=== PATIENT | female | born 1985 | race Hispanic/Latino ===

== ENCOUNTER 2018-11-29 08:04 | Emergency (ER) | payer BC ==
--- NOTE | 2018-11-29 09:44 | RAD REPORT ---
EXAM DESCRIPTION: RAD - Chest Pa And Lat (2 Views) - 11/29/2018 9:01 am CLINICAL HISTORY: cough COMPARISON: None. TECHNIQUE: PA and lateral views of the chest were obtained. FINDINGS: The lungs are clear. Heart size is normal and central vasculature is within normal limit s. No pleural effusion or pneumothorax seen. No acute bony finding noted. No aortic abnormality. Clothing artifacts overlie the chest. IMPRESSION: No acute cardiopulmonary process.
--- NOTE | 2018-11-29 10:12 | ER ---
Nurse's Notes [facility] Name: Soraida Gastelum Age: 33 yrs Sex: Female : 1985 Arrival Date: 11/29/2018 Time: 08:06 Bed 6 Private MD: Diagnosis: Cough Presentation: 11/29 08:15 Presenting complaint: Patient states: Intermittent cough x 1 month, sensation that ss there is a lump in throat when swallowing and now sharp pain when coughing in upper back which brought patient in today. Transition of care: patient was not received from another setting of care. Onset of symptoms was October 29, 2018. Risk Assessment: Do you want to hurt yourself or someone else? Patient reports no desire to harm self or others. Initial Sepsis Screen: Does the patient meet any 2 criteria? No. Patient's initial sepsis screen is negative. Does the patient have a suspected source of infection? No. Patient's initial sepsis screen is negative. Care prior to arrival: None. 08:15 Method Of Arrival: Ambulatory ss 08:15 Acuity: KEEGAN 4 ss Triage Assessment: 08:34 General: Appears in no apparent distress. uncomfortable, Behavior is calm, cooperative, hj appropriate for age. 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 - Social history:: Smoking status: Patient/guardian denies using tobacco. - Ebola Screening: : Patient denies exposure to infectious person Patient denies travel to an Ebola-affected area in the 21 days before illness onset. Screenin:15 Abuse screen: Denies threats or abuse. Denies injuries from another. Nutritional hj screening: No deficits noted. Tuberculosis screening: No symptoms or risk factors identified. Fall Risk None identified. Assessment: 08:15 Pain: Complains of pain in throat and chest. Respiratory: Airway is patent Respiratory hj effort is even, unlabored, Respiratory pattern is regular, symmetrical, Breath sounds are clear. EENT: 09:05 Reassessment: back from XRAY;. hj 10:35 EENT: Throat is clear. hj Vital Signs: 08:17 BP 123 / 64; Pulse 89; Resp 16; Temp 98.4(O); Pulse Ox 100% on R/A; Weight 63.5 kg; ss Height 4 ft. 11 in. (149.86 cm); Pain 0/10; 08:37 BP 117 / 71; Pulse 85; Resp 18; Pulse Ox 97% on R/A; hj 09:21 BP 120 / 68; Pulse 80; Resp 18; Pulse Ox 100% on R/A; hj 08:17 Body Mass Index 28.28 (63.50 kg, 149.86 cm) ED Course: 08:06 Patient arrived in ED. as 08:07 Elizabeth Elizabeth FNP-C is PHCP. kb 08:07 Regis Chung MD is Attending Physician. kb 08:16 Triage completed. ss 08:17 Arm band placed on right wrist. 08:32 Felipe Erickson, RN is Primary Nurse. hj 08:34 Patient has correct armband on for positive identification. Placed in gown. Bed in low hj position. Call light in reach. Side rails up X 1. 08:54 X-ray completed. Patient tolerated procedure well. Patient moved to radiology via wheelchair. Patient moved back from radiology. 09:00 Chest Pa And Lat (2 Views) In Process Unspecified. EDMS 10:34 No provider procedures requiring assistance completed. Patient did not have IV access hj during this emergency room visit. intact, bleeding controlled. Administered Medications: No medications were administered Outcome: 10:07 Discharge ordered by . kb 10:34 Discharged to home ambulatory. hj 10:34 Condition: stable 10:34 Discharge instructions given to patient, Instructed on discharge instructions, follow up and referral plans. Demonstrated understanding of instructions, follow-up care. 10:35 Patient left the ED. hj Signatures: Dispatcher [employer] EDMS Elizabeth Elizabeth FNP-C FNP-Ckb Martinez, Amelia as Smirch, Shelby, DORA RN Kay Vallecillo Felipe Erickson, RN RN hj
--- NOTE | 2018-11-29 10:13 | EDPHYS ---
Physician Documentation [facility] Name: Soraida Gastelum Age: 33 yrs Sex: Female : 1985 Arrival Date: 11/29/2018 Time: 08:06 Bed 6 Private MD: ED Physician Regis Chung HPI: 11/29 10:15 This 33 yrs old Female presents to ER via Ambulatory with complaints of Cough, kb Sore Throat, Back Pain. 10:15 The patient or guardian reports cough, that is intermittent, described as moderate, kb with no sputum. Onset: The symptoms/episode began/occurred 1 month(s) ago. Severity of symptoms: At their worst the symptoms were moderate, in the emergency department the symptoms are unchanged. Modifying factors: The symptoms are alleviated by nothing, the symptoms are aggravated by nothing. Associated signs and symptoms: Pertinent positives: sore throat. The patient has not experienced similar symptoms in the past. The patient has not recently seen a physician. Pt reports cough for over a month that is intermittent. States she has pain in her back and throat when she has the coughing fits. No pain or coughing at this time. 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 - Social history:: Smoking status: Patient/guardian denies using tobacco. - Ebola Screening: : Patient denies exposure to infectious person Patient denies travel to an Ebola-affected area in the 21 days before illness onset. ROS: 10:15 Constitutional: Negative for fever, chills, and weight loss, Cardiovascular: Negative kb for chest pain, palpitations, and edema, Abdomen/GI: Negative for abdominal pain, nausea, vomiting, diarrhea, and constipation, Back: Negative for injury and pain, : Negative for injury, bleeding, discharge, and swelling, MS/Extremity: Negative for injury and deformity, Skin: Negative for injury, rash, and discoloration, Neuro: Negative for headache, weakness, numbness, tingling, and seizure. 10:15 Respiratory: Positive for cough, Negative for dyspnea on exertion, hemoptysis, orthopnea, pleurisy, shortness of breath, sputum production, wheezing. Exam: 10:15 Constitutional: This is a well developed, well nourished patient who is awake, alert, kb and in no acute distress. Head/Face: Normocephalic, atraumatic. Eyes: Pupils equal round and reactive to light, extra-ocular motions intact. Lids and lashes normal. Conjunctiva and sclera are non-icteric and not injected. Cornea within normal limits. Periorbital areas with no swelling, redness, or edema. ENT: Nares patent. No nasal discharge, no septal abnormalities noted. Tympanic membranes are normal and external auditory canals are clear. Oropharynx with no redness, swelling, or masses, exudates, or evidence of obstruction, uvula midline. Mucous membranes moist. Neck: Trachea midline, no thyromegaly or masses palpated, and no cervical lymphadenopathy. Supple, full range of motion without nuchal rigidity, or vertebral point tenderness. No Meningismus. Chest/axilla: Normal chest wall appearance and motion. Nontender with no deformity. No lesions are appreciated. Cardiovascular: Regular rate and rhythm with a normal S1 and S2. No gallops, murmurs, or rubs. Normal PMI, no JVD. No pulse deficits. Respiratory: Lungs have equal breath sounds bilaterally, clear to auscultation and percussion. No rales, rhonchi or wheezes noted. No increased work of breathing, no retractions or nasal flaring. Abdomen/GI: Soft, non-tender, with normal bowel sounds. No distension or tympany. No guarding or rebound. No evidence of tenderness throughout. Back: No spinal tenderness. No costovertebral tenderness. Full range of motion. Skin: Warm, dry with normal turgor. Normal color with no rashes, no lesions, and no evidence of cellulitis. MS/ Extremity: Pulses equal, no cyanosis. Neurovascular intact. Full, normal range of motion. Neuro: Awake and alert, GCS 15, oriented to person, place, time, and situation. Cranial nerves II-XII grossly intact. Motor strength 5/5 in all extremities. Sensory grossly intact. Cerebellar exam normal. Normal gait. Vital Signs: 08:17 BP 123 / 64; Pulse 89; Resp 16; Temp 98.4(O); Pulse Ox 100% on R/A; Weight 63.5 kg; ss Height 4 ft. 11 in. (149.86 cm); Pain 0/10; 08:37 BP 117 / 71; Pulse 85; Resp 18; Pulse Ox 97% on R/A; hj 09:21 BP 120 / 68; Pulse 80; Resp 18; Pulse Ox 100% on R/A; hj 08:17 Body Mass Index 28.28 (63.50 kg, 149.86 cm) MDM: 08:08 Patient medically screened. [facility] 10:14 Data reviewed: vital signs, nurses notes. Data interpreted: Pulse oximetry: on room air kb is 100 %. Interpretation: normal. Counseling: I had a detailed discussion with the patient and/or guardian regarding: the historical points, exam findings, and any diagnostic results supporting the discharge/admit diagnosis, radiology results, the need for outpatient follow up, a family practitioner, to return to the emergency department if symptoms worsen or persist or if there are any questions or concerns that arise at home. 10:16 ED course: Pt does reports history of GERD, but doesn't take any medications. Educated kb to take a daily GERD medication OTC to see if that improves symptoms.. 11/29 08:43 Order name: Chest Pa And Lat (2 Views); Complete Time: 10:04 EDMS Administered Medications: No medications were administered Disposition: 11/30 07:31 Co-signature as Attending Physician, Regis Chung MD I agree with the assessment and [facility] plan of care. Chart complete. Disposition: 11/29/18 10:07 Discharged to Home. Impression: Cough. - Condition is Stable. - Discharge Instructions: Cough, Adult, Oikx-ie-Tewr. - Medication Reconciliation Form, Thank You Letter, Antibiotic Education, Prescription Opioid Use form. - Follow up: Private Physician; When: 2 - 3 days; Reason: Recheck today's complaints, Continuance of care, Re-evaluation by your physician. Follow up: Emergency Department; When: As needed; Reason: Worsening of condition. Signatures: Dispatcher [employer] EDMS Elizabeth Elizabeth FNP-C FNP-Ckb Anderson, Corey, MD MD cha Smirch, Shelby, RN RN Felipe Erickson RN RN hj Corrections: (The following items were deleted from the chart) 11/29 09:06 09:02 Chest Pa And Lat (2 Views)+[email or web address].[email or web address] ordered. EDMS EDMS 10:35 10:07 11/29/2018 10:07 Discharged to Home. Impression: Cough. Condition is Stable. hj Forms are Medication Reconciliation Form, Thank You Letter, Antibiotic Education, Prescription Opioid Use. Follow up: Private Physician; When: 2 - 3 days; Reason: Recheck today's complaints, Continuance of care, Re-evaluation by your physician. Follow up: Emergency Department; When: As needed; Reason: Worsening of condition. kb
[2018-11-29 11:01] VITALS: TEMP 98.4
[2018-11-29 11:02] VITALS: BP 120/68; O2SAT 100
== END 2018-11-29 10:35 | disposition home or self-care (01) ==
LOC: ER 08:04
DX: R05 Cough (principal); F41.9 Anxiety disorder, unspecified
CPT/HCPCS: 71046; 99283

== ENCOUNTER 2021-03-21 08:40 | Day surgery (SDC) | payer BC ==
[2021-03-21 08:50] LABS: Urine Appearance CLOUDY (Clear); Urine Bilirubin NEGATIVE (Negative); Urine Blood 3+ (Negative); Urine Color YELLOW (Yellow); Urine Glucose NEGATIVE (Negative); Urine Protein NEGATIVE (Negative); Urine Urobilinogen 0.2 mg/dL (0.2-1.0)
[2021-03-21 08:52] LABS: Urine Microscopic Reflex ORDER UMIC
[2021-03-21 08:58] LABS: Absolute Lymphocytes (CBC) 2.2 K/uL (0.7-4.9); Hematocrit 40.7 % (36.0-45.0); Lymphocytes % 24.5 % (15.3-44.8); MPV 9.9 fL (7.6-11.3); RBC Red Blood Cell Count 4.47 M/uL (3.86-4.86)
[2021-03-21] MEDS ORDERED: SCOPOLAMINE HYDROBROMIDE PATCH TD SCH (09:00)
[2021-03-21] MEDS ORDERED: Ringers Lactate 1,000 ML IV SCH (09:00)
[2021-03-21 09:02] LABS: Urine Bacteria 20-50 /HPF (<20)
[2021-03-21] MEDS ORDERED: Ringers Lactate 1,000 ML IV ONE (09:23)
[2021-03-21 09:35] LABS: Blood Morphology Comment NOT SEEN (NOT SEEN); Platelet Estimate ADEQ
[2021-03-21] MEDS ORDERED: SCOPOLAMINE HYDROBROMIDE PATCH TD ONE (11:18)
[2021-03-21] MEDS ORDERED: propofoL 200 MG/20 ML VIAL IV ONE (14:43)
[2021-03-21] MEDS ORDERED: dexAMETHasone 10 MG/ML VIAL ONE (14:43)
[2021-03-21] MEDS ORDERED: LIDOCAINE 1% MPF 5 ML VIAL ONE (14:44)
[2021-03-21] MEDS ORDERED: MIDAZOLAM HCL 2 MG/2 ML INJ ONE (14:44)
[2021-03-21] MEDS ORDERED: FENTANYL CITR 250 MCG/5 ML ONE (14:44)
[2021-03-21] MEDS ORDERED: VECURONIUM 10 MG/VIAL IV ONE (14:44)
[2021-03-21] MEDS ORDERED: LANO/MINERAL OIL/PETRO 3.5 GM ONE (14:44)
[2021-03-21] MEDS ORDERED: NS 0.9% VIAL 10 ML ONE (14:44)
[2021-03-21] MEDS ORDERED: ONDANSETRON 4 MG/2 ML VIAL ONE (14:44)
[2021-03-21] MEDS ORDERED: BUPIVACAINE 0.25% PF 10 ML VIAL ONE (15:11)
[2021-03-21] MEDS: BUPIVACAINE 0.25% PF 10 ML VIAL ONE ×2 (15:45→15:56)
[2021-03-21] MEDS ORDERED: KETOROLAC 30 MG/ML INJ ONE (16:03)
[2021-03-21] MEDS ORDERED: GLYCOPYRROLATE 0.2 MG/ML SYR ONE (16:08)
[2021-03-21] MEDS ORDERED: NEOSTIGMINE 1 MG/ML -5 ML ONE (16:10)
[2021-03-21] MEDS ORDERED: MEPERIDINE HCL 25 MG/ML SYR IM PRN (16:25)
[2021-03-21] MEDS ORDERED: IBUPROFEN 200 MG TAB PO PRN (16:25)
[2021-03-21] MEDS ORDERED: HYDROCODONE/APAP 5/325 MG TAB PO PRN (16:25)
[2021-03-21] MEDS ORDERED: PROMETHAZINE INJ 25 MG/ML AMP IV PRN (16:25)
[2021-03-21] MEDS ORDERED: ALBUTEROL INHALER 60 PUFF/8 GM IH ONE (16:31)
--- NOTE | 2021-03-21 16:35 | P.BOP ---
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
[2021-03-21] MEDS: HYDROMORPHONE HCL 1 MG/ML INJ ONE ×2 (16:50→16:55)
[2021-03-21 17:14] VITALS: BP 126/75; TEMP 98.2; O2SAT 99
[2021-03-21] MEDS ORDERED: HYDROCODONE/APAP 5/325 MG TAB ONE (17:20)
--- NOTE | 2021-03-21 17:30 | OP ---
Date of Procedure: 03/21/2021 Surgeon: Marlen Hendrickson MD Wood Bucker: Maryann Virgen. Preoperative Diagnoses: AUB-O/A, dysmenorrhea, left lower quadrant pain. Postoperative Diagnoses: AUB-O/A, dysmenorrhea, left lower quadrant pain and hydrosalpinges. Procedures Performed: Hysteroscopy, D and C, laparoscopy, bilateral salpingectomy. Anesthesia: General endotracheal. Estimated Blood Loss: Minimal. Specimens: Bilateral tubes. Complications: No complications. Drains: No drains. Condition: Stable. Urine Output: 200. Fluids: LR 600. Findings: Dilated tube. No endometriosis. Omental adhesions to the periumbilical area. Indications: The patient is a 35-year-old female, who presented with heavy bleeding and dysmenorrhea , complaining of left lower quadrant pain. Transvaginal ultrasound showed an unremarkable uterus and ovaries lining was only 7.4 mm. The patient is status post tubal ligation. No fertility plans any further. Her periods are usually 7 days long. 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 Denied dyspareunia, bladder or bowel symp toms. There was left lower quadrant tenderness very low to deep palpation on the abdominal exam. On pelvic exam, the left uterosacral appeared to be tender and retroflexed uterus with decreased mobili ty. Discussed about all the alternatives for treatment including oral contraceptive pills to treat for po ssible endometriosis. The right ovarian cyst 2.5 cm physiologic, did not really believe that this wo uld be the reason for her pain. Naproxen was given for her dysmenorrhea. We observed the patient wi th this and over time did not have adequate relief. No evidence of any PID. So, discussed about the surgical treatment and options and evaluation. The patient was found stress urinary incontinence an d some prolapse both noted. However, the patient wanted to proceed with taking care of her bleeding and pain at this time first. So, I went ahead and discussed the alternatives of Depot progesterone, not a great candidate for IUD. So, I wanted to go for a diagnostic test as well as possible therapeu tic treatment if endometriosis was found, so she was consented and brought to the OR. Prior to the surgery, she also was evaluated for her mixed incontinence, although the patient was com plaining mostly of stress incontinence. On urodynamic evaluation, it was very clear that her overact horacio bladder was much severe with the low bladder capacity and her maximal urethral closure pressure w as very high at 120. Did not demonstrate a leak on Valsalva during the test. So, she was started on overactive bladder pathway, then brought here for the pain and bleeding evaluation. After informed consent was verified, she was taken back to OR, placed in supine fashion on the operat ing table. General anesthesia was given. Placed in a dorsal lithotomy position after she was preppe d and draped. White was placed to drain the bladder. Speculum placed to expose the cervix. Anterio r lip was grasped with 2 Allis clamps and diagnostic SlimLine hysteroscope was used for hysteroscopy. D and C was performed after the scope was pulled out. The cavity was undistorted. No intracavitar y lesions. The endometrium unremarkable. A diagnostic uterine manipulator was introduced into the u terus and fixed in place. A 1 cm infraumbilical incision was made with a scalpel using the open laparoscopy technique. Fascia was identified, held with 2 Elder clamps, incised, tagged with 0 Vicryl sutures and peritoneum enter ed bluntly. S-retractors were placed. Toshia was introduced. After site of entry was visualized, t here were omental adhesions here all around. A 5 left lower quadrant and 5 suprapubic ports were placed under direct vision. Marcaine was injecte d at the entry and at the fascia and the skin after 5 ports were placed. Thorough evaluation of the peritoneal cavity was performed including the upper abdomen and omental surfaces. Lower abdomen and appendix all unremarkable. Then, ovaries completely unremarkable, no endometriosis and bilateral dil ated tubes. So, I proceeded with removal of tubes with LigaSure. Specimens were pulled out through the umbilical port. Thorough irrigation and suction were performed and after pictures were taken, sc ope was pulled out. Gas was desufflated. All the ports were removed under direct vision. Fascia at the umbilicus was closed with the help of 0 Vicryl sutures tied together and 4-0 chromic interrupted sutures for closing the skin. White and VCare were removed. Instrument, needle, and sponge counts were done and were correct at the end of the case. The patient tolerated the procedure well. She wi ll follow up in 1 week. Plan will be to continue her overactive bladder pathway and then evaluate he r bleeding and her pain. Then, we can discuss future treatment plan for this patient. SAM Voice ID: [id number] Report ID: [id number]
== END 2021-03-21 17:50 | disposition home or self-care (01) ==
LOC: OR 08:40
PROVIDERS: ATTEND Obstetrics & Gynecology
PROC: 0UJD8ZZ Inspection of Uterus and Cervix, Via Natural or Artificial Opening Endoscopic (ICD-10-PCS; 2021-03-21)
PROC: 0UT74ZZ Resection of Bilateral Fallopian Tubes, Percutaneous Endoscopic Approach (ICD-10-PCS; 2021-03-21)
PROC: 0UDB7ZX Extraction of Endometrium, Via Natural or Artificial Opening, Diagnostic (ICD-10-PCS; principal; 2021-03-21 13:00)
DX: N93.9 Abnormal uterine and vaginal bleeding, unspecified (principal); N94.6 Dysmenorrhea, unspecified; R10.32 Left lower quadrant pain; Z20.822 Contact with and (suspected) exposure to COVID-19
CPT/HCPCS: 87088; 85025; 87086; 36415; 86900; 86850; 81025; 86901; 88302; 88305; 58558; 58661; U0003; J2704; J2250; J3010; J1100; J1170; J2710; J7120; J2405; 81003; 81015

== ENCOUNTER 2023-06-25 15:01 | Emergency (ER) | payer BC, OTHER ==
--- OUTSIDE RECORDS SUMMARY | 2023-06-25 15:04 | XMS REPORT | Continuity of Care Document ---
Author Name Unknown Address [address] [place] [address]. [address] [place] [address] [facility] Address [address] [facility]. [address] [place] [address] Care Team Providers Care Store Stock Help Name Role Phone [email or web address] Attending Clinician Unavaila ble [email or web address] Admitting Clinician Unavaila ble Payers Payer Name Policy Type Policy Number Effective Date Expirati on Date Source [place] [employer] [place] [id number] 2022 00:00:00 [facility] [id number] 2022 00:00:00 Encounters Start Date/Time End Date/Time Encounter Type Admission Type Attending Clinicians Care Facility Care Department Encounter ID Source 2023-06-25 00:00:00 2023-06-25 00:00:00 Outpatient [email or web address] [email or web address]_S PRIV PRIV [id number] [facility] 2023-01-27 00:00:00 2023-01-27 00:00:00 Outpatient [email or web address] [email or web address]_S PRIV PRIV [id number] [facility] 2023-01-26 00:00:00 2023-01-26 00:00:00 Outpatient [email or web address] diyala_S PRIV PRIV [id number] [facility]
[2023-06-25 15:55] LABS: Absolute Eosinophils 0.2 K/uL (0-0.5); Absolute Lymphocytes (CBC) 2.1 K/uL (0.7-4.9); Absolute Monocytes 0.5 K/uL (0.1-1.3); Absolute Neutrophil 3.4 K/uL (1.8-8.0); Basophils % 0.6 % (0-1.3); Eosinophils % 3.1 % (0-4.4); Hematocrit 38.9 % (36.0-45.0); Hemoglobin 13.1 g/dL (12.0-15.0); Lymphocytes % 34.1 % (15.3-44.8); MCH 31.4 pg (27.0-35.0); MCHC 33.6 g/dL (32.0-36.0); MCV 93.4 fL (80-100); MPV 10.2 fL (7.6-11.3); Monocytes % 7.9 % (3.3-12.3); Neutrophils % 54.3 % (41.7-73.7); Platelets 180 thou/uL (152-406); RBC Red Blood Cell Count 4.17 M/uL (3.86-4.86); Red Cell Distribution Width 13.4 % (12.1-15.2)
[2023-06-25 15:59] LABS: Specific Gravity 1.012 (1.005-1.030)
[2023-06-25 16:04] LABS: Specific Gravity 1.012 (1.005-1.030); Sqamous Epithelial <5 /HPF (None Seen); Urine Bacteria None Seen /HPF (<20); Urine Bilirubin NEGATIVE (Negative); Urine Blood 2+ (Negative); Urine Clarity Clear (Clear); Urine Color Colorless (Yellow); Urine Culture Reflex Order NOT NEEDED; Urine Glucose NEGATIVE (Negative); Urine Ketones NEGATIVE (Negative); Urine Microscopic Reflex YN ORDER UMIC; Urine Nitrite NEGATIVE (Negative); Urine Protein NEGATIVE (Negative); Urine Urobilinogen Normal (Normal); Urine WBC <5 /HPF (<5)
[2023-06-25 16:14] LABS: Albumin 3.8 g/dL (3.4-5.0); Albumin/Globulin Ratio 1.2 (1.1-1.8); Anion Gap 7.7 mEq/L (5.0-15.0); Bilirubin Total 0.2 mg/dL (0.2-1.0); Globulin 3.2 g/dL (2.3-3.5); Potassium 3.7 mEq/L (3.5-5.1)
--- NOTE | 2023-06-25 17:55 | RAD REPORT ---
EXAM DESCRIPTION: CT - Abdomen Pelvis W Contrast - 06/25/2023 4:35 pm CLINICAL HISTORY: Abd pain;Hematuria COMPARISON: Abdomen Pelvis W/Wo Contrast dated 05/11/2019 TECHNIQUE: Thin cut axial CT imaging of the abdomen and pelvis was performed following intravenous a dministration of iodinated contrast. Multiplanar reformats were generated and reviewed. All CT scans are performed using dose optimization technique as appropriate and may include automated exposure control or mA/KV adjustment according to patient size. FINDINGS: No suspicious findings in the lung bases. The liver, spleen, adrenal glands, and pancreas show no suspicious findings. Gallbladder was surgical ly removed. Symmetric renal function is seen with no suspicious renal mass. Mild left hydronephrosis. 9 mm calcul us at the mid left ureter. Nonobstructing right mid pole 3 mm calculus. No dilated bowel loops or bowel wall thickening. No free air, or suspicious fluid collections. Right ovarian collapsed marginally enhancing 2.3 cm cystic lesion with trace free pelvic fluid. Uterus is r etroverted. Few ill-defined cysts in the region of the cervix No hernia, mass or bulky lymphadenopath y. The urinary bladder is without significant finding. No suspicious bony findings. IMPRESSION: Mild left hydronephrosis. 9 mm calculus at the mid left ureter. Trace free pelvic fluid with a collapsed right adnexal cyst, findings may relate to recent cyst/ foll icle rupture. No other acute intra-abdominal process. The findings were communicated to Isabella Espinosa on 06/25/2023 at 17:51 hours.
--- NOTE | 2023-06-25 18:12 | EDPHYS ---
Physician Documentation [facility] Name: Soraida Gastelum Age: 37 yrs Sex: Female : 1985 Arrival Date: 06/25/2023 Time: 15:01 Bed 13 Private MD: Mario White ED Physician Regis Chung HPI: 06/24 15:28 This 37 yrs old Female presents to ER via Ambulatory with complaints of sb4 Urinary Problem, Low Back Pain. 15:28 Patient reports right lower back pain x 2 weeks that has been worsening. States sb4 yesterday she had a bowel movement and when she wiped she noticed there was blood, but was not sure if it came from the front or the back. Later she only wipes the front and noted blood on the toilet paper. She states this has happened a few times afterwards. She states that her menstrual cycles not supposed to occur for another 2 weeks. She has a history of tubal ligation. She denies any abdominal pain, nausea, vomiting, dysuria. 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 - Social history:: Smoking status: Patient denies any tobacco usage or history of. ROS: 15:30 Constitutional: Negative for fever, chills, and weight loss, sb4 15:30 Back: Positive for pain at rest, 15:30 : Positive for hematuria, 15:30 All other systems are negative, Exam: 15:30 Constitutional: This is a well developed, well nourished patient who is awake, alert, sb4 and in no acute distress. Head/Face: Normocephalic, atraumatic. Eyes: Extra-ocular motions intact. Periorbital areas with no swelling, redness, or edema. ENT: Mucous membranes moist. Cardiovascular: Regular rate and rhythm with a normal S1 and S2. Respiratory: Lungs have equal breath sounds bilaterally, clear to auscultation and percussion. No rales, rhonchi or wheezes noted. No increased work of breathing, no retractions or nasal flaring. Abdomen/GI: Soft, non-tender, no distension. Skin: Warm, dry with normal turgor. Normal color with no rashes, no lesions, and no evidence of cellulitis. MS/ Extremity: Pulses equal, no cyanosis. Neurovascular intact. Full, normal range of motion. Neuro: Awake and alert, GCS 15, oriented to person, place, time, and situation. Motor strength 5/5 in all extremities. Sensory grossly intact. Vital Signs: 15:06 BP 118 / 78; Pulse 92; Resp 15; Temp 99; Pulse Ox 99% ; ko1 15:59 BP 104 / 59; Pulse 92; Resp 16; Pulse Ox 97% on R/A; me1 17:13 BP 113 / 72; Pulse 95; Resp 16; Pulse Ox 100% on R/A; me1 18:00 BP 114 / 75; Pulse 97; Resp 16; Pulse Ox 100% on R/A; me1 18:30 BP 113 / 71; Pulse 88; Resp 16; Pulse Ox 100% on R/A; me1 MDM: 15:14 Patient medically screened. sb4 18:10 Data reviewed: vital signs, nurses notes, lab test result(s), radiologic studies, I sb4 have discussed the patient's presentation/case with the attending Emergency Department Physician; and as a result, I will discharge patient. Consideration of Admission/Observation Escalation of care including admission/observation considered. Counseling: I had a detailed discussion with the patient and/or guardian regarding the historical points, exam findings, and any diagnostic results supporting the discharge/admit diagnosis, lab results, radiology results, the need for outpatient follow up, a urologist, to return to the emergency department if symptoms worsen or persist or if there are any questions or concerns that arise at home. 06/24 15:26 Order name: CBC with Diff; Complete Time: 15:56 [facility] 06/24 15:26 Order name: CMP; Complete Time: 16:15 [facility] 06/24 15:26 Order name: Test, Urine; Complete Time: 16:00 [facility] 06/24 15:26 Order name: Urinalysis w/ reflexes; Complete Time: 16:08 [facility] 06/24 15:26 Order name: CT Abd/Pelvis - IV Contrast Only; Complete Time: 17:56 [facility] 06/24 15:26 Order name: IV Saline Lock; Complete Time: 15:45 [facility] 06/24 15:26 Order name: Labs collected and sent; Complete Time: 15:45 sb4 Administered Medications: 18:26 Drug: Flomax PO 0.4 mg PO once Route: PO; me1 18:38 Follow up: Response: No adverse reaction me1 Disposition Summary: 06/25/23 18:11 Discharge Ordered Notes: Location: Home sb4 Problem: an ongoing problem sb4 Symptoms: have improved sb4 Condition: Stable sb4 Diagnosis - Calculus of kidney with calculus of ureter - 9 mm, left sb4 Followup: sb4 - With: Srikanth Munoz MD - When: 2 - 3 days - Reason: Recheck today's complaints, Re-evaluation by your physician Discharge Instructions: - Discharge Summary Sheet sb4 - Kidney Stones sb4 Forms: - Thank You Letter sb4 - Prescription Opioid Use sb4 - Patient Portal Instructions sb4 - Leadership Thank You Letter sb4 Prescriptions: - acetaminophen-codeine 300-30 mg Oral tablet - take 1 tablet ORAL route every 8 hours as needed for pain; 15 tablet; Refills: sb4 0, Product Selection Permitted - ketorolac 10 mg Oral tablet - take 1 tablet ORAL route every 8 hours for 3 days as needed for pain; 12 sb4 tablet; Refills: 0, Product Selection Permitted - tamsulosin 0.4 mg Oral capsule - take 1 capsule ORAL route every day at bedtime; 20 capsule; Refills: 0, Product sb4 Selection Permitted Signatures: Dispatcher [employer] Eda Leyva, RN RN ko1 Isabella Espinosa PA-C PAChantel sb4 Denise Quinonez RN RN me1
--- NOTE | 2023-06-25 18:12 | ER ---
Nurse's Notes [facility] Name: Soraida Gastelum Age: 37 yrs Sex: Female : 1985 Arrival Date: 06/25/2023 Time: 15:01 Bed 13 Private MD: Mario White Diagnosis: Calculus of kidney with calculus of ureter-9 mm, left Presentation: 06/24 15:06 Chief complaint: Patient states: having right lower back pain x 2 weeks but started ko1 seeing blood when peeing yesterday, some abdominal cramping but cycle isn't due for 2 more weeks. Coronavirus screen: At this time, the client does not indicate any symptoms associated with coronavirus-19. Ebola Screen: No symptoms or risks identified at this time. Initial Sepsis Screen: Does the patient meet any 2 criteria? No. Patient's initial sepsis screen is negative. Does the patient have a suspected source of infection? No. Patient's initial sepsis screen is negative. Risk Assessment: Do you want to hurt yourself or someone else? Patient reports no desire to harm self or others. Onset of symptoms was June 25, 2023. 15:06 Method Of Arrival: Ambulatory ko1 15:06 Acuity: KEEGAN 3 ko1 Triage Assessment: 15:10 General: Appears in no apparent distress. Behavior is calm, cooperative, appropriate ko1 for age. Pain: Complains of pain in right low back. 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 - Social history:: Smoking status: Patient denies any tobacco usage or history of. Screenin:56 [facility] ED Fall Risk Assessment (Adult) History of falling in the last 3 months, me1 including since admission No falls in past 3 months (0 pts) Confusion or Disorientation No (0 pts) Intoxicated or Sedated No (0 pts) Impaired Gait No (0 pts) Mobility Assist Device Used No (0 pt) Altered Elimination No (0 pt) Score/Fall Risk Level 0 - 2 = Low Risk Maintained a safe environment, Provided non-skid footwear, Hourly rounding (assess needs \T\ fall precautionary measures) done. Abuse screen: Denies threats or abuse. Nutritional screening: No deficits noted. Tuberculosis screening: No symptoms or risk factors identified. Assessment: 15:50 General: Appears uncomfortable, well groomed, well developed, well nourished, Behavior me1 is calm, cooperative, appropriate for age, Reports having right lower back pain x 2 weeks but started seeing blood when peeing yesterday, some abdominal cramping but cycle isn't due for 2 more weeks. Pain: Complains of pain in back and right low back Pain does not radiate. Pain currently is 3 out of 10 on a pain scale. Quality of pain is described as tender, Pain began gradually, about 2 weeks ago. 15:50 Neuro: Level of Consciousness is awake, alert, obeys commands, Oriented to person, me1 place, time, situation, Appropriate for age. Cardiovascular: Patient's skin is warm and dry. Respiratory: Respiratory effort is even, unlabored, Respiratory pattern is regular, symmetrical. GI: No signs and/or symptoms were reported involving the gastrointestinal system. : Reports pain in right in lower back blood in urine last night and again today. EENT: No signs and/or symptoms were reported regarding the EENT system. Derm: Skin is intact, is healthy with good turgor, Skin is pink, warm \T\ dry. Musculoskeletal: No signs and/or symptoms reported regarding the musculoskeletal system. 17:00 Reassessment: Patient and/or family updated on plan of care and expected duration. Pain me1 level reassessed. Patient is alert, oriented x 3, equal unlabored respirations, skin warm/dry/pink. Vital Signs: 15:06 BP 118 / 78; Pulse 92; Resp 15; Temp 99; Pulse Ox 99% ; ko1 15:59 BP 104 / 59; Pulse 92; Resp 16; Pulse Ox 97% on R/A; me1 17:13 BP 113 / 72; Pulse 95; Resp 16; Pulse Ox 100% on R/A; me1 18:00 BP 114 / 75; Pulse 97; Resp 16; Pulse Ox 100% on R/A; me1 18:30 BP 113 / 71; Pulse 88; Resp 16; Pulse Ox 100% on R/A; me1 ED Course: 15:03 Patient arrived in ED. rg4 15:03 Mario White MD is Private Physician. rg4 15:03 Isabella Espinosa PA-C [facility]. sb4 15:03 Regis Chung MD is Attending Physician. sb4 15:10 Triage completed. ko1 15:10 Arm band placed on right wrist. Patient placed in an exam room, on a stretcher, on ko1 pulse oximetry, Patient notified of wait time. 15:29 Radiology exam delayed due to lab results not completed at this time. (BUN/Creatinine). nj 15:29 Radiology exam delayed due to test not completed at this time. nj 15:29 Radiology exam delayed due to IV insertion attempt and/or patient not having nj appropriate IV at this time. 15:37 Denise Quinonez, RN is Primary Nurse. me1 15:45 Initial lab(s) drawn, by me, sent to lab. Urine collected: clean catch specimen, me1 cloudy. Inserted saline lock: 22 gauge in right antecubital area, using aseptic technique. 15:45 CBC with Diff Sent. me1 15:45 CMP Sent. me1 15:45 Test, Urine Sent. me1 15:45 Urinalysis w/ reflexes Sent. me1 15:56 Patient has correct armband on for positive identification. Bed in low position. Call me1 light in reach. Provided Education on: POC. Verbalized understanding. . Client placed on continuous cardiac and pulse oximetry monitoring. NIBP monitoring applied. Pulse ox on. NIBP on. 15:56 No provider procedures requiring assistance completed. me1 15:59 Radiology exam delayed due to lab results not completed at this time. (BUN/Creatinine). nj 16:36 CT Abd/Pelvis - IV Contrast Only In Process Unspecified. EDMS 18:11 Srikanth Munoz MD is Referral Physician. sb4 18:45 IV discontinued, intact, bleeding controlled, No redness/swelling at site. Pressure me1 dressing applied. Administered Medications: 18:26 Drug: Flomax PO 0.4 mg PO once Route: PO; me1 18:38 Follow up: Response: No adverse reaction me1 Medication: 15:56 VIS not applicable for this client. me1 Outcome: 18:11 Discharge ordered by MD. sb4 18:45 Discharged to home ambulatory, me1 18:45 Condition: stable 18:45 Discharge instructions given to patient, Instructed on discharge instructions, follow up and referral plans. medication usage, Demonstrated understanding of instructions, follow-up care, medications, Prescriptions given X 3, 18:46 Patient left the ED. me1 Signatures: Dispatcher [employer] EDLupe Ennis rg4 Jerad Castillo Kathy, RN RN ko1 Isabella Espinosa PA-C PAChantel [email or web address] Denise Quinonez, RN RN me1 Corrections: (The following items were deleted from the chart) 15:50 15:06 Chief complaint: Patient states: having right lower back pain x 2 weeks but me1 started seeing blood when peeing yesterday, some abdominal cramping but cycle isn't due for 2 more weeks ko1 17:00 15:56 Neuro: Level of Consciousness is awake, alert, obeys commands, Oriented to ut1 person, place, time, situation, Appropriate for age me1 17:00 15:56 Cardiovascular: Patient's skin is warm and dry. ut1 [facility] 17:00 15:56 Respiratory: Respiratory effort is even, unlabored, Respiratory pattern is ut1 regular, symmetrical, me1 17:00 15:56 GI: No signs and/or symptoms were reported involving the gastrointestinal system. ut1 [facility] 17:00 15:56 : Reports pain in right in lower back blood in urine last night and again me1 today. me1 17:00 15:56 EENT: No signs and/or symptoms were reported regarding the EENT system. ut1 [facility] 17:00 15:56 Derm: Skin is intact, is healthy with good turgor, Skin is pink, warm \T\ dry. ut1 [facility] 17:00 15:56 Musculoskeletal: No signs and/or symptoms reported regarding the musculoskeletal ut1 system. me1
[2023-06-25] MEDS ORDERED: TAMSULOSIN 0.4 MG SR CAP ONE (18:24)
[2023-06-25 19:17] VITALS: BP 113/71; TEMP 99; O2SAT 100
== END 2023-06-25 18:46 | disposition home or self-care (01) ==
LOC: ER 15:01
DX: N20.2 Calculus of kidney with calculus of ureter (principal)
CPT/HCPCS: 85025; 81001; 36415; 81025; 80053; 74177; 99284; Q9967

== ENCOUNTER 2024-06-25 23:13 | Emergency (ER) | payer BC, OTHER ==
--- OUTSIDE RECORDS SUMMARY | 2024-06-25 23:18 | XMS REPORT | Continuity of Care Document ---
Author Name Unknown Address [address] [facility]. [address] [place] [address] Organization [facility] Address [address] [facility] [address] [place] [address] Care Team Providers Care Bobbin Coil Winder Name Role Phone No, Pcp Primary Care Physician Héctor Page Attending Clinician UnavailStef Escudreo MD Attending Clinician STEF DELA CRUZ Attending Clinician Unavailable GC_GCBZW_Kadicarsona_S Attending Clinician Unavaila Andra Wilburn Admitting Clinician Unavailabl e GC_GCBZW_Kajennifera_S Admitting Clinician Unavaila caitlin Payers Payer Name Policy Type Policy Number Effective Date Expirati on Date Source BCBS ESSENTIALS COMM [id number] 2022 00:00:00 [employer] COMM [id number] 2022 00:00:00 [place] [facility] [id number] 2022 00:00:00 [facility] [id number] 2022 00:00:00 Problems Condition Name Condition Details Condition Category Status Onset Date Resolution Date Last Treatment Date Treating Clinician Comments Source Postoperat horacio pain Postoperat horacio Pain Problem Active 2023-03 0-08 00:00: 00 [facility] Incomplete passage of stool Incomplete Passage of Stool Problem Active 0 9-09 00:00: 00 [facility] Urethral intrinsic sphincter deficiency Urethral Intrinsic Sphincter Deficiency Problem Active 0 9- 00:00: 00 [facility] Constipati on Constipati on Problem Active 0 8-30 00:00: 00 [facility] Microscopi c hematuria Microscopi c Hematuria Problem Active 0 8-30 00:00: 00 [facility] Dyspareuni a Dyspareuni a Problem Active 0 8-30 00:00: 00 [facility] Menorrhagi a Menorrhagi a Problem Active 0 8-30 00:00: 00 [facility] Abdominal bloating Abdominal Bloating Problem Active 0 8-30 00:00: 00 [facility] Urgent desire to urinate Urgent Desire to Urinate Problem Active 0 8-30 00:00: 00 [facility] Uterine adenomyosi s Uterine Adenomyosi s Problem Active 0 8-30 00:00: 00 [facility] Midline cystocele Midline Cystocele Problem Active 0 8-29 00:00: 00 [facility] Herniation of rectum into vagina Herniation of Rectum into Vagina Problem Active 0 8-29 00:00: 00 [facility] Uterine prolapse Uterine Prolapse Problem Active 0 8-29 00:00: 00 [facility] Female stress incontinen ce Female Stress Incontinen ce Problem Active 0 6-19 00:00: 00 [facility] Poor pelvic muscle tone Poor Pelvic Muscle Tone Problem Active 0 6-19 00:00: 00 [facility] Nocturia Nocturia Problem Active 0 6-18 00:00: 00 [facility] Uterovagin al prolapse Uterovagin al Prolapse Problem Active 0 6-10 00:00: 00 [facility] Kidney stone Kidney stone Disease Active 0 5-21 00:00: 00 Dhara Viveros Ovarian cyst Ovarian cyst Disease Active 0 5- 00:00: 00 Dhara Melchor [facility] Acute depression Acute depression Disease Active 0 5- 00:00: 00 Dhara Viveros Irregular periods Irregular Periods Problem Active 405 00:00: 00 [facility] Kidney stone Kidney Stone Problem Active 405 00:00: 00 [facility] Incomplete uterovagin al prolapse Incomplete Uterovagin al Prolapse Problem Active 2020-03 2 00:00: 00 [facility] Polymenorr hea Polymenorr hea Problem Active 2020-03 00:00: 00 [facility] Excessive menstruati on with irregular cycle Excessive Menstruati on with Irregular Cycle Problem Active 2020-03 00:00: 00 [facility] Mixed hyperlipid emia Mixed Hyperlipid emia Problem Active 2020-03 00:00: 00 [facility] Hypercalce jose Hypercalce jose Problem Active 2020-03 00:00: 00 [facility] Low back pain Low Back Pain Problem Active 2020-03 00:00: 00 [facility] Nausea and vomiting Nausea and Vomiting Problem Active 2020-03 00:00: 00 [facility] Left lower quadrant pain Left Lower Quadrant Pain Problem Active 2020-03 00:00: 00 [facility] Dysmenorrh ea Dysmenorrh ea Problem Active 04-10 00:00: 00 [facility] Excessive and frequent menstruati on Excessive and Frequent Menstruati on Problem Active 04-10 00:00: 00 [facility] Pelvic and perineal pain Pelvic and Perineal Pain Problem Active 04-10 00:00: 00 [facility] Overactive urinary bladder Overactive Urinary Bladder Problem Active 2019-03 00:00: 00 [facility] Gynecologi karlee examinatio n abnormal Gynecologi karlee Examinatio n Abnormal Problem Active 2019-03 00:00: 00 [facility] Venereal disease screening Venereal Disease Screening Problem Active 2019-03 0 00:00: 00 [facility] Blood in urine Blood in Urine Problem Active 04-27 00:00: 00 [facility] Genuine stress incontinen ce Genuine Stress Incontinen ce Problem Active 2018-03 00:00: 00 [facility] Sensation as if urinary bladder still full Sensation as If Urinary Bladder Still Full Problem Active 2018-03 00:00: 00 [facility] Increased frequency of urination Increased Frequency of Urination Problem Active 2018- 2- 00:00: 00 [facility] Allergies, Adverse Reactions, Alerts Allergy Name Allergy Type Status Severity Reaction(s) Onset Date Inactive Date Treating Clinician Comments Source No Known Allergie s DA Active U 9- 00:00: 00 [facility] NO KNOWN ALLERGIE S SYSTEMIC Active [facility] NO KNOWN ALLERGIE S SYSTEMIC Active [facility] NO KNOWN ALLERGIE S SYSTEMIC Active M[facility] NO KNOWN ALLERGIE S SYSTEMIC Active [facility] NO KNOWN ALLERGIE S SYSTEMIC Active [facility] NO KNOWN ALLERGIE S SYSTEMIC Active [facility] NO KNOWN ALLERGIE S SYSTEMIC Active [facility] NO KNOWN ALLERGIE S SYSTEMIC Active [facility] Social History Social Habit Start Date Stop Date Quantity Comments Source Gender identity 2023-08-27 10:27:35 Identifies as [facility] ASSERTION Possible [facility] Sexual orientation [facility] History of Social function 2023-07-30 00:00:00 2023-07-30 00:00:00 [facility] Smoking Status Start Date Stop Date Source Never smoked tobacco Dhara Melchor [facility] Medications Ordered Medication Name Filled Medication Name Start Date Stop Date Current Medication? Ordering Clinician Indication Dosage Frequency Signature (SIG) Comments Components Source docusate sodium (Colace) 100 MG capsule docusate sodium (Colace) 100 MG capsule 07-08 00:00: 00 10-18 00:00 :00 No 100mg Q.5D Take 100 mg by mouth in the morning and 100 mg in the evening. Dhara Melchor [facility] solifenacin (VESIcare) 10 MG tablet solifenacin (VESIcare) 10 MG tablet 07-08 00:00: 00 10-18 00:00 :00 No 10mg QD Take 10 mg by mouth 1 time each day. Dhara Melchor [facility] hyoscyamine (Levsin/SL) 0.125 MG SL tablet hyoscyamine (Levsin/SL) 0.125 MG SL tablet 07-08 00:00: 00 10-18 00:00 :00 No .125mg Q4H Take 0.125 mg by mouth every 4 hours if needed. Dhara Viveros tamsulosin (Flomax) 0.4 MG 24 hr capsule tamsulosin (Flomax) 0.4 MG 24 hr capsule 07-08 00:00: 00 10-18 00:00 :00 No .4mg 0.4 mg. Dhara Viveros buspirone 15 mg tablet TAKE 1 TABLET BY MOUTH TWICE A DAY buspirone 15 mg tablet TAKE 1 TABLET BY MOUTH TWICE A DAY 07-02 00:00: 00 No buspirone 15 mg tablet TAKE 1 TABLET BY MOUTH TWICE A DAY [facility] buPROPion XL (Wellbutrin XL) 150 MG 24 hr tablet buPROPion XL (Wellbutrin XL) 150 MG 24 hr tablet 06-29 00:00: 00 Yes 150mg Take 150 mg by mouth every morning. Dhara Viveros busPIRone (Buspar) 15 MG tablet busPIRone (Buspar) 15 MG tablet 06-29 00:00: 00 Yes 15mg Q.5D Take 15 mg by mouth in the morning and 15 mg in the evening. Dhara Viveros pantoprazol e (ProtoNix) 40 MG EC tablet pantoprazol e (ProtoNix) 40 MG EC tablet 06-29 00:00: 00 Yes 40mg Take 40 mg by mouth in the morning. Take before meals. Dhara Viveros acetaminoph en-codeine (Tylenol w/ Codeine #3) 300-30 MG tablet acetaminoph en-codeine (Tylenol w/ Codeine #3) 300-30 MG tablet 06-29 00:00: 00 10-18 00:00 :00 No 1 tab, PO, PRN, 0 Refill(s) Dhara Melchor [facility] Myrbetriq 50 mg tablet,exte nded release 1 tablet; Once a day; 30 days Myrbetriq 50 mg tablet,exte nded release 1 tablet; Once a day; 30 days 2- 00:00: 00 No Myrbetriq 50 mg tablet,ext ended release 1 tablet; Once a day; 30 days [facility] solifenacin 5 mg tablet TAKE 1 TABLET BY MOUTH EVERY DAY FOR 30 DAYS solifenacin 5 mg tablet TAKE 1 TABLET BY MOUTH EVERY DAY FOR 30 DAYS No 1 Q1D solifenaci n 5 mg tablet TAKE 1 TABLET BY MOUTH EVERY DAY FOR 30 DAYS [facility] celecoxib 200 mg capsule TAKE 1 CAPSULE BY MOUTH ONCE DAILY NEEDED FOR 30 DAYS celecoxib 200 mg capsule TAKE 1 CAPSULE BY MOUTH ONCE DAILY NEEDED FOR 30 DAYS No celecoxib 200 mg capsule TAKE 1 CAPSULE BY MOUTH ONCE DAILY NEEDED FOR 30 DAYS [facility] cephalexin 500 mg capsule TAKE 1 CAPSULE BY MOUTH EVERY 6 HOURS FOR 7 DAYS cephalexin 500 mg capsule TAKE 1 CAPSULE BY MOUTH EVERY 6 HOURS FOR 7 DAYS No cephalexin 500 mg capsule TAKE 1 CAPSULE BY MOUTH EVERY 6 HOURS FOR 7 DAYS [facility] escitalopra m 10 mg tablet 1 tablet; Once a day; 30 day(s) escitalopra m 10 mg tablet 1 tablet; Once a day; 30 day(s) No escitalopr am 10 mg tablet 1 tablet; Once a day; 30 day(s) [facility] gabapentin 300 mg capsule TAKE 1 CAPSULE BY MOUTH THREE TIMES DAILY FOR 10 DAYS gabapentin 300 mg capsule TAKE 1 CAPSULE BY MOUTH THREE TIMES DAILY FOR 10 DAYS No gabapentin 300 mg capsule TAKE 1 CAPSULE BY MOUTH THREE TIMES DAILY FOR 10 DAYS [facility] gentamicin 0.1 % topical cream APPLY 1 APPLICATION TO LEFT EAR 3 TIMES A DAY FOR 7 DAYS gentamicin 0.1 % topical cream APPLY 1 APPLICATION TO LEFT EAR 3 TIMES A DAY FOR 7 DAYS No gentamicin 0.1 % topical cream APPLY 1 APPLICATIO N TO LEFT EAR 3 TIMES A DAY FOR 7 DAYS [facility] Myrbetriq Myrbetriq No Myrbetriq [facility] naproxen 500 mg tablet 1 tablet with food or milk as needed; three times a day; 30 days naproxen 500 mg tablet 1 tablet with food or milk as needed; three times a day; 30 days No naproxen 500 mg tablet 1 tablet with food or milk as needed; three times a day; 30 days [facility] nitrofurant oin macrocrysta l 100 mg capsule Take 1 capsule twice a day by oral route for 7 days. nitrofurant oin macrocrysta l 100 mg capsule Take 1 capsule twice a day by oral route for 7 days. No 1capsul e(s) BID nitrofuran toin macrocryst al 100 mg capsule Take 1 capsule twice a day by oral route for 7 days. [facility] nitrofurant oin monohydrate /macrocryst als 100 mg capsule TAKE 1 CAPSULE BY MOUTH TWICE DAILY FOR 7 DAYS nitrofurant oin monohydrate /macrocryst als 100 mg capsule TAKE 1 CAPSULE BY MOUTH TWICE DAILY FOR 7 DAYS No nitrofuran toin monohydrat e/macrocry stals 100 mg capsule TAKE 1 CAPSULE BY MOUTH TWICE DAILY FOR 7 DAYS [facility] omeprazole 20 mg capsule,del ayed release 1 capsule 30 minutes before morning meal; Once a day; 30 day(s) omeprazole 20 mg capsule,del ayed release 1 capsule 30 minutes before morning meal; Once a day; 30 day(s) No omeprazole 20 mg capsule,de layed release 1 capsule 30 minutes before morning meal; Once a day; 30 day(s) [facility] 8.6 mg tablet Take 2 tablets every day by oral route as needed. senna 8.6 mg tablet Take 2 tablets every day by oral route as needed. No 2 Q1D senna 8.6 mg tablet Take 2 tablets every day by oral route as needed. [facility] guanfacine ER 1 mg tablet,exte nded release 24 hr TAKE 1 TABLE ONCE A DAY AT NIGHT guanfacine ER 1 mg tablet,exte nded release 24 hr TAKE 1 TABLE ONCE A DAY AT NIGHT No guanfacine ER 1 mg tablet,ext ended release 24 hr TAKE 1 TABLE ONCE A DAY AT NIGHT [facility] Vital Signs Vital Name Observation Time Observation Value Comments S ource BP Systolic 2024-02-22 00:00:00 121 mm[Hg] [facility] Height 2024-02-22 00:00:00 59 [in_i] [facility] BP Diastolic 2024-02-22 00:00:00 92 mm[Hg] [facility] BMI (Body Mass Index) 2024-02-22 00:00:00 24.4 kg/m2 [facility] Body Weight 2024-02-22 00:00:00 121 [lb_av] [facility] Body Weight 2024-01-22 00:00:00 121 [lb_av] [facility] Height 2024-01-22 00:00:00 59 [in_i] [facility] BP Diastolic 2024-01-22 00:00:00 65 mm[Hg] [facility] BMI (Body Mass Index) 2024-01-22 00:00:00 24.4 kg/m2 [facility] BP Systolic 2024-01-22 00:00:00 102 mm[Hg] [facility] Height 2023-12-14 00:00:00 59 [in_i] [facility] Body Weight 2023-12-07 00:00:00 119.4 [lb_av] [facility] BMI (Body Mass Index) 2023-12-07 00:00:00 24.1 kg/m2 [facility] BP Systolic 2023-12-07 00:00:00 106 mm[Hg] [facility] BP Diastolic 2023-12-07 00:00:00 84 mm[Hg] [facility] Height 2023-12-07 00:00:00 59 [in_i] [facility] Body Weight 2023-11-27 00:00:00 119.4 [lb_av] [facility] BP Diastolic 2023-11-27 00:00:00 105 mm[Hg] [facility] Height 2023-11-27 00:00:00 59 [in_i] [facility] BP Systolic 2023-11-27 00:00:00 144 mm[Hg] [facility] BMI (Body Mass Index) 2023-11-27 00:00:00 24.1 kg/m2 [facility] Body height 2023-11-23 11:35:00 149.9 cm Tra [facility] [place] [facility] Body weight 2023-11-23 11:35:00 53.978 kg Tra rial [place] [facility] BMI 2023-11-23 11:35:00 24.04 kg/m2 Tra [facility] [place] [facility] Body height 2023-11-23 11:35:00 149.9 cm Tra rial [place] [facility] Body weight 2023-11-23 11:35:00 53.978 kg Tra rial [place] [facility] BMI 2023-11-23 11:35:00 24.04 kg/m2 Tra [facility] [place] [facility] BP Diastolic 2023-11-23 00:00:00 74 mm[Hg] [facility] Height 2023-11-23 00:00:00 59 [in_i] [facility] BP Systolic 2023-11-23 00:00:00 122 mm[Hg] [facility] BMI (Body Mass Index) 2023-11-23 00:00:00 24.2 kg/m2 [facility] Body Weight 2023-11-23 00:00:00 120 [lb_av] [facility] BMI (Body Mass Index) 2023-09-15 00:00:00 24.2 kg/m2 [facility] BP Diastolic 2023-09-15 00:00:00 77 mm[Hg] [facility] BP Systolic 2023-09-15 00:00:00 114 mm[Hg] [facility] Height 2023-09-15 00:00:00 59 [in_i] [facility] Body Weight 2023-09-15 00:00:00 120 [lb_av] [facility] Body Weight 2023-08-26 00:00:00 118.2 [lb_av] [facility] BP Diastolic 2023-08-26 00:00:00 71 mm[Hg] [facility] Height 2023-08-26 00:00:00 59 [in_i] [facility] BP Systolic 2023-08-26 00:00:00 113 mm[Hg] [facility] BMI (Body Mass Index) 2023-08-26 00:00:00 23.9 kg/m2 [facility] Body Weight 2023-07-03 00:00:00 119 [lb_av] [facility] BP Systolic 2023-07-03 00:00:00 118 mm[Hg] [facility] Height 2023-07-03 00:00:00 59 [in_i] [facility] BMI (Body Mass Index) 2023-07-03 00:00:00 24 kg/m2 [facility] BP Diastolic 2023-07-03 00:00:00 81 mm[Hg] [facility] Procedures Procedure Date / Time Performed Performing Clinician Source XR abdomen 1 view 2024-05-13 00:00:00 Mem juany [facility] US retroperitoneum limited 2024-05-13 00:00:00 [facility] Total Hysterectomy 2024-01-05 00:00:00 [facility] Total Laparoscopic Hysterectomy (Surg) 2024-01-05 00:00:00 [facility] UA with culture if indicated 2023-10-19 00:00:00 [facility] Hysteroscopy 2021-03-21 00:00:00 [facility] Salpingostomy 2020-03-30 00:00:00 [facility] Procedure on Gallbladder 2020-03-30 00:00:00 [facility] Tubal Ligation 2012-03-30 00:00:00 [facility] Cholecystectomy 2008-03-30 00:00:00 [facility] Encounters Start Date/Time End Date/Time Encounter Type Admission Type Attending [facility] Care Facility Care Department Encounter ID Source 2024-02-22 00:00:00 2024-02-22 00:00:00 Andra Wilson MD: [address], [address], [place] [address] , Ph. [phone] [facility] [facility]* [id number] [facility] 2024-01-22 00:00:00 2024-01-22 00:00:00 Héctor Page MD: [address] [place] [address] , Ph. [facility] Office [id number] [facility] 2024-01-22 00:00:00 2024-01-22 00:00:00 Héctor Page MD: [address] [place] [address] , Ph. [facility] Office [id number] [facility] 2024-01-05 05:18:00 2024-01-06 11:48:00 Inpatient Héctor Bauer [facility].01 [id number] [facility] 2023-12-18 00:00:00 2023-12-18 09:23:32 Legacy Orders Only Encounter UmeshStef [facility] [id number] [facility] 2023-12-18 00:00:00 2023-12-18 09:23:32 Legacy Orders Only Encounter Stef Dela Cruz [facility] [id number] [facility] 2023-12-14 00:00:00 2023-12-14 00:00:00 Héctor Page MD: [address] [facility], [address], [place] [address] , Ph. [facility] GC_[facility]OM[facility]_ [place] Office* [id number] [facility] 2023-12-07 00:00:00 2023-12-07 00:00:00 Andra Wilson MD: [address], [place] [address] , Ph. [phone] [facility] _[place] Office* [id number] [facility] 2023-12-07 00:00:00 2023-12-07 00:00:00 Andra Wilson MD: [address] [place] [address], [address], [place] [address] , Ph. [phone] [facility] _[place] Office* [id number] [facility] 2023-11-27 00:00:00 2023-11-27 00:00:00 Andra Wilson MD: [facility] [address] [facility] [address], [place] [address] , Ph. [phone] [facility] _[place] Office* [id number] [facility] 2023-11-27 00:00:00 2023-11-27 00:00:00 Andra Wilson MD: [address] [facility] [address], [place] [address] , Ph. [phone] [facility] _[place] Office* [id number] [facility] 2023-11-23 11:20:00 2023-11-23 11:55:24 Office Visit Stef Dela Cruz [place] [id number] [facility] 11:08:36 2023-11-23 11:55:[address] [facility] [id number] [facility] 2023-11-23 00:00:00 2023-11-23 00:00:00 Héctor Page MD: [address] [facility], [address], [place] [address] , Ph. [facility]_ [place] [facility]* [id number] [facility] 2023-11-23 00:00:00 2023-11-23 00:00:00 Héctor Page MD: [address] [facility], [address], [place] [address] , Ph. [facility]_ [place] [facility]* [id number] [facility] 2023-10-22 00:00:00 2023-11-19 09:48:39 Telephone Stef Dela Cruz [facility] [id number] Dhara [facility] 2023-11-17 00:00:00 2023-11-17 00:00:00 Marlen Hendrickson MD: [address], [place] [address] , Ph. [facility] GC_GCBZW_[facility]* [id number] [facility] 2023-11-17 00:00:00 2023-11-17 00:00:00 Marlen Hendrickson MD: [address], [place] [address] , Ph. Replaced by [facility] - GC_GCBZW_Niyah jones Glenn* [id number] [facility] 2023-11-09 00:00:00 2023-11-09 00:00:00 FELICITAS De Anda: [address], [place] [address] , Ph. Replaced by [facility] - GC_GCBZW_Niyah robert Glenn* [id number] [facility] 2023-11-09 00:00:00 2023-11-09 00:00:00 FELICITAS De Anda: [address], [place] [address] , Ph. Replaced by [facility] - GC_GCBZW_Niyah robert Glenn* [id number] [facility] 2023-11-09 00:00:00 2023-11-09 00:00:00 FELICITAS De Anda: [address], [place] [id number] , Ph. Replaced by [facility] - GC_GCBZW_Nd robert Glenn* [id number] [facility] 2023-10-30 08:52:00 2023-10-30 23:59:00 Outpatient STEF DELA CRUZ [facility] CATHIE [id number] [facility] 2023-10-27 00:00:00 2023-10-27 00:00:00 FELICITAS De Anda: [address], [place] [address] , Ph. Replaced by [facility] - GC_GCBZW_Nd robert Glenn* [id number] [facility] 2023-10-27 00:00:00 2023-10-27 00:00:00 FELICITAS De Anda: [address], [place] [address] , Ph. Replaced by [facility] - GC_GCBZW_Niyah Elizabeth* [id number] [facility] 2023-10-27 00:00:00 2023-10-27 00:00:00 FELICITAS De Anda: [address], [place] [id number] , Ph. Replaced by [facility] - GC_GCBZW_Niyah Elizabeth* [id number] [facility] 2023-10-21 00:00:00 2023-10-21 00:00:00 FELICITAS De Anda: [address], [place] [address] , Ph. Replaced by [facility] - GC_GCBZW_Niyah Elizabeth* [id number] [facility] 2023-10-19 09:10:00 2023-10-19 09:26:31 Office Visit Stef Dela Cruz [place] [id number] [facility] 2023-10-19 09:08:20 2023-10-19 09:26:[address] [facility] [id number] [facility] 2023-10-13 00:00:00 2023-10-13 00:00:00 FELICITAS De Anda: [address], [place] [id number] , Ph. Replaced by [facility] - GC_GCBZW_Niyah Elizabeth* [id number] [facility] 2023-10-08 00:00:00 2023-10-08 00:00:00 FELICITAS De Anda: [address], [place] [id number] , Ph. Replaced by [facility] - GC_GCBZW_Niyah robert Glenn* [id number] [facility] 2023-09-28 00:00:00 2023-09-28 00:00:00 FELICITAS De Anda: [address], [place] [address] , Ph. Replaced by [facility] - GC_GCBZW_Niyah Elizabeth* [id number] [facility] 2023-09-15 00:00:00 2023-09-15 00:00:00 Marlen Hendrickson MD: [address], [place] [address] , Ph. [facility] GC_GCBZW_Niyah Elizabeth* [id number] [facility] 2023-09-10 10:00:00 2023-09-10 11:00:00 Outside Procedure Stef Dela Cruz [facility] [id number] [facility] 2023-09-10 08:03:00 2023-09-10 10:20:00 Outpatient STEF DELA CRUZ [facility] CATHIE [id number] [facility] 2023-09-07 00:00:00 2023-09-07 00:00:00 FELICITAS James: [address], [place] [address] , Ph. [facility] GC_GCBZW_Niyah Elizabeth* [id number] [facility] 2023-09-03 08:38:54 2023-09-03 23:59:00 Outpatient Elective MHEOUT M[facility]OUT [id number] [facility] 2023-08-26 00:00:00 2023-08-26 00:00:00 FELICITAS James: [address], [place] [address] , Ph. 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 GC_GCBZW_Ka diyala_S Replaced by [facility] - GC_GCBZW_[facility]* [id number] [facility] 2023-06-25 00:00:00 2023-06-25 00:00:00 Outpatient GC_GCBZW_Ka diyala_S [facility] [id number] [facility] 2023-01-27 00:00:00 2023-01-27 00:00:00 Outpatient GC_GCBZW_Ka diyala_S [facility] [id number] [facility] 2023-01-26 00:00:00 2023-01-26 00:00:00 Outpatient GC_GCBZW_Ka diyala_S [facility] [id number] [facility] Medical Results Test Description Test Time Test Comments Results Result Co mments Source Surgical pathology [id number] 11:25:00[facility] [id number] 05:38:00* Test Item Value Reference Range Interpretation Comme nts HEMOGLOBIN (test code = HGB) 11.4 g/dL 10.1-13.8 N HEMATOCRIT (test code = HCT) 33.9 % 32.5-41.8 N Hemoglobin and Hematocrit panel - [id number] 05:09:00* Test Item Value Reference Range Interpretation Comme nts hemoglobin (test code = hemoglobin) 11.4 g/dL 10.1-13.8 hematocrit (test code = hematocrit) 33.9 % 32.5-41.8 performing lab: (test code = performing lab:) [facility] HCG [id number] 06:09:00* Test Item Value Reference Range Interpretation Comme nts UR HCG QUAL (test code = HCGQLU) NEGATIVE 1. Very dilute u rine specimens, as indicated by a lowspecific gravity, may not contain account manager sales representative levels ofhCG. 2. False negative results may occur when the levels of hCGare below the sensitivity level of the test. If is still suspected, a first morningurine specimen should be collected 48 hours later andtested. test, [id number] 05:20:00* Test Item Value Reference Range Interpretation Comme nts ur HCG qual (test code = ur HCG qual) NEGATIVE performing lab: (test code = performing [facility] [id number] 13:33:00* Test Item Value Reference Range Interpretation Comme nts SODIUM (test code = NA) 138 mEq/L 136-145 N POTASSIUM (test code = K) 3.9 mEQ/L 3.4-4.5 N Please note new normal range as of July 2023 CHLORIDE (test code = CL) 107 mEq/L 98-107 N Please note new normal range as of July 2023 CARBON DIOXIDE (test code = CO2) 28 mEq/L 22-31 N ANION GAP (test code = GAP) 6.9 10-20 L GLUCOSE (test code = GLU) 80 mg/dL 74-106 N Please note new normal range as of July 2023 BLOOD UREA NITROGEN (test code = BUN) 16 mg/dL 8-23 N Please note ne w normal range as of July 2023 CREATININE (test code = CREAT) 0.6 mg/dL 0.55-1.02 N Please note new normal range as of July 2023 CALCIUM (test code = CA) 9.2 mg/dL 8.3-10.6 N Please note new normal range as of July 2023 GLOMERULAR FILTRATION RATE (test code = GFR) 118.49 ml/min >60 N The Glomerular Filtration Rate is a calculated parameterbased on serum Creatinine, patient age and sex. GFR valuesless than 60 mL/min/1.73 square meters are indicative ofChronic Kidney Disease. Values less than 15 mL/min/1.73square meters indicate Kidney failure. The calculation forGFR is based on the CKD-EPI (2020) calculation. This formulais race indifferent and is the recommended formula for GFRby the National Kidney Foundation for Adults.The GFR will not calculate if the sex is unknown or if thepatient's age is <18 years. basic metabolic [id number] 12:50:00* Test Item Value Reference Range Interpretation Comme nts sodium (test code = sodium) 138 mEq/L 136-145 potassium (test code = potassium) 3.9 mEq/L 3.4-4.5 chloride (test code = chloride) 107 mEq/L 98-107 carbon dioxide (test code = carbon dioxide) 28 mEq/L 22-31 anion gap (test code = anion gap) 6.9 10-20 L glucose (test code = glucose) 80 mg/dL 74-106 blood urea nitrogen (test co de = blood urea nitrogen) 16 mg/dL 8-23 glomerular filtration rate (test code = glomerular filtration rate) 118.49 mL/min >60 creatinine (test code = creatinine) 0.6 mg/dL 0.55-1.02 calcium (test code = calcium) 9.2 mg/dL 8.3-10.6 performing lab: (test code = performing lab:) [facility] HCG [id number] 11:47:00* Test Item Value Reference Range Interpretation Comme nts UR HCG QUAL (test code = HCGQLU) NEGATIVE 1. Very dilute u rine specimens, as indicated by a lowspecific gravity, may not contain account manager sales representative levels ofhCG. 2. False negative results may occur when the levels of hCGare below the sensitivity level of the test. If is still suspected, a first morningurine specimen should be collected 48 hours later andtested. CBC W/AUTO [id number] 11:40:00* Test Item Value Reference Range Interpretation Comme nts WHITE BLOOD CELL (test code = WBC) 8.0 K/mm3 6.5-12.3 N RED BLOOD CELL (test code = RBC) 4.35 M/mm3 3.51-4.69 N HEMOGLOBIN (test code = HGB) 13.1 g/dL 10.1-13.8 N HEMATOCRIT (test code = HCT) 39.7 % 32.5-41.8 N MEAN CELL VOLUME (test code = MCV) 91.3 fL 84.6-96.6 N MEAN CELL HGB (test code = MCH) 30.1 pg 27.3-33.9 N MEAN CELL HGB CONCETRATION ( test code = MCHC) 33.0 gm/dL 32.0-34.2 N RED CELL DISTRIBUTION WIDTH (test code = RDW) 14.0 % 12.2-16.3 N PLATELET COUNT (test code = PLT) 238 K/mm3 134-363 N MEAN PLATELET VOLUME (test c ode = MPV) 12.4 fL 9.2-12.7 N NEUTROPHIL % (test code = NT%) 70.5 % 57.9-77.3 N LYMPHOCYTE % (test code = LY%) 22.4 % 14.5-29.7 N MONOCYTE % (test code = MO%) 5.6 % 3.6-10.2 N EOSINOPHIL % (test code = EO%) 0.6 % 0.0-3.0 N BASOPHIL % (test code = BA%) 0.5 % 0.1-0.9 N NEUTROPHIL # (test code = NT#) 5.6 K/mm3 LYMPHOCYTE # (test code = LY#) 1.8 K/mm3 MONOCYTE # (test code = MO#) 0.5 K/mm3 EOSINOPHIL # (test code = EO#) 0.05 K/mm3 BASOPHIL # (test code = BA#) 0.0 K/mm3 CBC W Auto Differential panel - [id number] 11:00:00* Test Item Value Reference Range Interpretation Comme nts white blood cell (test code = white blood cell) 8.0 K/mm3 6.5-12.3 red blood cell (test code = red blood cell) 4.35 M/mm3 3.51-4.69 hemoglobin (test code = hemoglobin) 13.1 g/dL 10.1-13.8 hematocrit (test code = hematocrit) 39.7 % 32.5-41.8 mean cell volume (test code = mean cell volume) 91.3 fL 84.6-96.6 mean cell HGB (test code = m claudio cell HGB) 30.1 pg 27.3-33.9 mean cell HGB concetration ( test code = mean cell HGB concetration) 33.0 gm/dL 32.0-34.2 red cell distribution width (test code = red cell distribution width) 14.0 % 12.2-16.3 platelet count (test code = platelet count) 238 K/mm3 134-363 mean platelet volume (test c ode = mean platelet volume) 12.4 fL 9.2-12.7 neutrophil % (test code = neutrophil %) 70.5 % 57.9-77.3 lymphocyte % (test code = lymphocyte %) 22.4 % 14.5-29.7 monocyte % (test code = mono cyte %) 5.6 % 3.6-10.2 eosinophil % (test code = eosinophil %) 0.6 % 0.0-3.0 basophil % (test code = baso laura %) 0.5 % 0.1-0.9 neutrophil # (test code = neutrophil #) 5.6 K/mm3 lymphocyte # (test code = lymphocyte #) 1.8 K/mm3 monocyte # (test code = mono cyte #) 0.5 K/mm3 eosinophil # (test code = eosinophil #) 0.05 K/mm3 basophil # (test code = baso laura #) 0.0 K/mm3 performing lab: (test code = performing lab:) [facility], [id number] 11:00:00* Test Item Value Reference Range Interpretation Comme nts ur HCG qual (test code = ur HCG qual) NEGATIVE performing lab: (test code = performing lab:) [facility] [id number] 10:45:00* Test Item Value Reference Range Interpretation Comme nts urine culture (test code = u rine culture) See Below performing lab: (test code = performing lab:) [facility] MedicalBacteria identified in Urine by [id number] 00:00:00* Test Item Value Reference Range Interpretation Comme nts Bacteria identified in Urine by Culture (test code = 630-4) NO GROWTH no growth [facility]ment of post-voiding residual urine and/or bladder capacity (PROC)2023-09-15 14:15:00* Test Item Value Reference Range Interpretation Comme nts (PVR) (test code = (PVR)) 14 [facility], [id number] 12:12:07* Test Item Value Reference Range Interpretation Comme nts HCG (test code = HCG) negative [facility] Medical[facility]lam[facility]omat[facility] and Neisseria gonorrhoeae rRNA panel - Specimen by MITUL with probe [id number] 00:00:00* Test Item Value Reference Range Interpretation Comme nts aptima combo 2 swab (CT) (te st code = aptima combo 2 swab (CT)) CT neg negative aptima combo 2 swab (GC) (te st code = aptima combo 2 swab (GC)) GC neg negative [facility], [id number] 15:16:37* Test Item Value Reference Range Interpretation Comme nts HCG (test code = HCG) negative [facility] MedicalThyrotropin [Units/volume] in Serum or [id number] 00:00:00* Test Item Value Reference Range Interpretation Comme nts Thyrotropin [Units/volume] i n Serum or Plasma (test code = 3016-3) 1.61 mIU/L [facility] Notes Upcoming Encounters Date/Time Note Provider Source 2024-01-06 08:20:00 [facility] ([facility] Clinical Note REPORT#:[id number] REPORT STATUS: Signed REPORT INITIALIZATION DATE:01/06/24 TIME: 819 PATIENT: QAMAR SANTANA UNIT #: [id number] ROOM/BED: [address] : 86 AGE: 38 SEX: F ATTEND: Héctor Page MD ADM AUTHOR: Shanti Taylor REPT SERVICE DT/TIME: 01/06/24 08 * ALL edits or amendments must be made on the electronic/computer document * Clinical Note Note: Laboratory Tests: 01/05 509 Hematology Hgb (10.1 - 13.8 g/dL) 11.4 Hct (32.5 - 41.8 %) 33.9 Vital Signs: Date Time Temp Pulse Resp B/P B/P Pulse O2 O2 Flow FiO2 Mean Ox Delivery Rate 01/05 359 98.2 85 16 105/68 80.5 96 Room air 01/04 2343 99.1 93 16 103/70 81.0 97 Room air 01/04 1952 98.6 95 16 111/72 85.0 96 Room air 01/04 1556 98.4 105 17 104/70 80.9 97 01/04 1211 99.1 109 17 120/79 92.6 96 01/04 1145 99 12 118/61 98 Room air 01/04 1115 101 16 119/64 100 Room air 01/04 1100 106 10 121/64 98 Room air 01/04 1045 99.1 101 11 120/63 100 Simple 10 mask 01/04 1030 99 15 125/60 100 Simple 10 mask 01/04 1015 97 19 123/62 100 Simple 10 mask 01/04 1008 Simple 10 mask 01/04 0948 97.3 101 17 109/72 100 Simple 10 mask 01/05 0700 01/04 2300 01/04 1500 Intake Total 1500.00 800.00 Output Total 800 2275 200 Balance -800 -775.00 600.00 Intake, IV 1100.00 800.00 Intake, Oral 400 Output, 100 Estimated Blood Loss Output, Urine 800 2275 100 Patient 54.1 kg Weight Weight Standing scale Measurement Method Pt doing well, tolerating PO. Passing flatus. Ambulating. Pain well controlled. Abd: incisions CDI, +BS, soft, approp TTP : vag pack out, cisneros in, minimal bleeding 1. POD1 routine postop care teach cisneros removal at home thursday anticipate discharge home later today Plan discussed with Dr. Wilson at 0820 RPT #:[id number] END OF REPORT [facility] 2024-01-06 07:58:00 [facility] ([facility]) Gynecology Post Prog Note REPORT#:[id number] REPORT STATUS: Signed REPORT INITIALIZATION DATE:01/06/24 TIME: 757 PATIENT: QAMAR SANTANA UNIT #: [id number] ROOM/BED: 2658-A : 86 AGE: 38 SEX: F ATTEND: Héctor Page MD ADM AUTHOR: Héctor Page MD REPT SERVICE DT/TIME: 01/06/24757 * ALL edits or amendments must be made on the electronic/computer document * General Post-op: day 1 Status post: TLH/sling/AP repair Subjective Comments: pain controlled, jani diet. ambulating. Cisneros in place. Objective General VS/I O: Last Documented: Result Date Time Pulse Ox 96 01/05 359 B/P 105/68 01/05 359 B/P Mean 80.5 01/05 359 O2 Delivery Room air 01/05 359 Temp 98.2 01/05 359 Pulse 85 01/05 359 Resp 16 01/05 359 O2 Flow Rate 10 01/04 1045 24 hour I O ending at 0700: 01/05 0700 01/04 1900 Intake Total 700.00 1600.00 Output Total 2175 1100 Balance -1475.00 500.00 Intake, IV 700.00 1200.00 Intake, Oral 400 Output, 100 Estimated Blood Loss Output, Urine 2175 1000 Patient 54.1 kg Weight Weight Standing scale Measurement Method PATIENT WEIGHT: Weight (lb): 119 Weight (oz): 4.32 Weight (kg): 54.100 Physical Exam General appearance: alert, awake, oriented Wound/incision: Location: laparoscopy x4 Site condition: dressing clean dry, edges approximated, incision intact Abdomen: non-tender, soft Neuro/SMASHER HAND: alert, oriented X 3 Results Findings/Data: Laboratory Tests 01/05 509 Hematology Hgb (10.1 - 13.8 g/dL) 11.4 Hct (32.5 - 41.8 %) 33.9 Diagnosis, Assessment Plan Free Text A P: POD 1, doing well. meeting postop goals. plan d/c home today. f/u office 2 wks. Orders: Procedure Date/time Status Medication Management Message 01/05 425 Complete at 0800 [facility] #:[id number] END OF REPORT [facility] 2024-01-05 10:03:00 [id number] [address] PATIENT NAME: QAMAR SANTANA ADMIT DATE: 01/05/24 ACCOUNT NO: [id number] ROOM NO: .2658 AGE: 38 SEX: F ADMITTING PHYSICIAN: Andra Wilson MD ATTENDING PHYSICIAN: Héctor Page MD OPERATION DATE: 01/05/2024 PREOPERATIVE DIAGNOSES: 1. Uterine prolapse. 2. Cystocele. 3. Rectocele. 4. Stress urinary incontinence. 5. Dyspareunia. 6. Constipation. 7. Low back pain. 8. Incomplete defecation. 9. Menorrhagia. 10. Adenomyosis. POSTOPERATIVE DIAGNOSES: 1. Uterine prolapse. 2. Cystocele. 3. Rectocele. 4. Stress urinary incontinence. 5. Dyspareunia. 6. Constipation. 7. Low back pain. 8. Incomplete defecation. 9. Menorrhagia. 10. Adenomyosis. PROCEDURES: 1. Assist Dr. Callum Page with total laparoscopic hysterectomy. 2. Laparoscopic uterosacral ligament suspension. 3. Anterior colporrhaphy. 4. Posterior colporrhaphy. 5. Cystoscopy. SURGEON: Andra Wilson M.D. FRONT COUNTER CLERK: DEVANTE Dickens ANESTHESIA: General. ESTIMATED BLOOD LOSS: 100 mL. COMPLICATIONS: None. PATIENT NAME: QAMAR SANTANA PROCEDURE IN DETAIL: The patient was taken to the operating room where she was placed under general anesthesia. She was then prepared and draped in the normal sterile fashion in the dorsal lithotomy position. The Cisneros catheter was placed in the patient's bladder draining Pyridium-stained urine. Dr. Page proceeded with the CHELLE manipulator placement, abdominal port placement, and total laparoscopic hysterectomy. She had previously had a salpingectomy. See his dictation. After the vaginal cuff was closed and hemostatic, the laparoscopic uterosacral ligament suspension was performed. The Leonard's dissector was placed within the vagina. The bladder was dissected free from the anterior vaginal wall. One suture of 0 [place] was placed through each lateral port, it was placed through its ipsilateral uterosacral ligament apical to the plicated portion of ligament, through the plicated portion of ligament, and through the anterior and posterior endopelvic fascia in a lateral manner. These sutures were tied down and excess suture was trimmed. The second suture of 0 [place] was placed through each lateral port, it was placed through its ipsilateral uterosacral ligament apical to the plicated portion of the ligament, through the plicated portion of the ligament, then through the anterior and posterior endopelvic fascia in a medial manner. These sutures were tied down and excess suture was trimmed. The abdomen was irrigated, viewed under low pressure, found to be hemostatic. The gas was removed. The ports were removed. The umbilical fascia was closed with 0 Vicryl. All skin incisions were closed with 4-0 Monocryl and Dermabond. The anterior colporrhaphy, retropubic sling, and cystoscopy were performed. The anterior vaginal wall was infiltrated with 0.25% Marcaine. A horizontal incision was made at the level of the bladder neck. Dissection was carried out laterally to the pelvic sidewalls and apically to the vaginal cuff. A site specific anterior colporrhaphy was performed using multiple sutures of 2-0 PDS. Once the cystocele was completely reduced, the vaginal epithelium was minimally trimmed and repaired using 2-0 Monocryl. The urethral meatus was grasped with an Allis clamp. A midline incision was made. The cut edges were retracted laterally. Dissection was carried out laterally to the pubic bone. The first arm of the [employer] sling was placed through the right side of the dissection, it was angled superiorly and anteriorly piercing the rectus muscle and fascia, brought through the skin just to the right of the midline. The same procedure was performed on the patient's left. The Cisneros catheter was removed. A cystoscopy was performed and she was found to have no evidence of ureteral, urethral, or bladder injuries. No masses or lesions were seen within the bladder. She had vigorous efflux of Pyridium-stained urine from bilateral ureteral orifices. The cystoscope was removed. The mesh arms were brought through the suprapubic incisions until there was no tension beneath the mid urethra. The plastic sleeves were cut and removed, securing the mesh into place. No tension was maintained between the mesh and the mid urethra using a right angle clamp. Excess mesh was trimmed. The suprapubic incisions were closed with Dermabond. The vaginal incision was closed with 2-0 PDS. The Cisneros catheter was replaced into the patient's bladder. The posterior colporrhaphy was performed. The posterior vaginal wall was infiltrated with 0.25% Marcaine. A midline incision was made. The cut edges were retracted laterally. Dissection was carried out laterally to the pelvic sidewalls and apically to the vaginal cuff. A site specific posterior colporrhaphy was performed using multiple sutures of 2-0 PDS. Once the rectocele was completely reduced, the vaginal epithelium was minimally trimmed and repaired using 2-0 Monocryl. Rectal exam demonstrated no further evidence of rectocele, no suture injury within the rectum. The vaginal packing was PATIENT NAME: QAMAR SANTANA placed and she was awoken and taken to the recovery room in stable condition. Sponge, lap and needle counts were correct x2. Dictated By: Andra Wilson MD Date Dictated: 01/05/2024 10:03:21 Date Transcribed: 01/05/2024 10:16:22 /[facility] Receipt ID: [id number] Authenticated and Edited by Andra Parker MD On 01/05/24 3:00:04 PM at 0301 PATIENT NAME: QAMAR SANTANA [facility] 2024-01-05 09:02:00 [facility] ([facility]) Brief Op Note REPORT#:[id number] REPORT STATUS: Signed REPORT INITIALIZATION DATE:01/05/24 TIME: 901 PATIENT: QAMAR SANTANA UNIT #: [id number] ROOM/BED: [address] : [birth year] AGE: 38 SEX: F ATTEND: Héctor Page MD ADM AUTHOR: Héctor Page MD REPT SERVICE DT/TIME: 01/05/24 0902 * ALL edits or amendments must be made on the electronic/computer document * Op/Inv Proc Note - Brief Pre-procedure diagnosis: pelvic pain, uterine prolapse, cystocele, rectocele Post-procedure diagnosis: same as pre procedure dx Procedures performed: [facility] Primary Surgeon: Ney Page Film Editor Supervisor(s): Nikole Wilson Anesthesia: general anesthesia Findings: 6-8 wk uterus with prolapse. nl ovaries. absent tubes. hemostatic. counts correct. Complications: none Estimated blood loss in ml's: 25 Specimens removed/altered: ut/cvx Approach: laparoscopic Wound class: clean/contaminated Disposition: remains in OR for completion of Dr. Wilson's procedure at 0904 RPT #:[id number] END OF REPORT [facility] 2024-01-05 09:01:00 [id number] [facility] [place] [address] [place], [place] [address] PATIENT NAME: QAMAR SANTANA ADMIT DATE: 01/05/24 ACCOUNT NO: [id number] ROOM NO: F.2658 AGE: 38 SEX: F ADMITTING PHYSICIAN: Andra Wilson MD ATTENDING PHYSICIAN: Héctor Page MD OPERATION DATE: 01/05/2024 PREOPERATIVE DIAGNOSES: 1. Uterine prolapse. 2. Pelvic pain. 3. Urinary or bowel symptoms. POSTOPERATIVE DIAGNOSES: 1. Uterine prolapse. 2. Pelvic pain. 3. Urinary or bowel symptoms. PROCEDURE PERFORMED: Total laparoscopic hysterectomy. SURGEON: Héctor Page MD FRONT COUNTER CLERK: Andra Wilson. ESTIMATED BLOOD LOSS: For hysterectomy, 25 mL ANESTHESIA: General endotracheal. COMPLICATIONS: None. PATHOLOGY: Uterus, cervix. OPERATIVE FINDINGS: 1. 6-8 week uterus with moderate prolapse. 2. Absent fallopian tubes. 3. Normal-appearing ovaries. 4. Hemostatic. 5. All counts correct. DISPOSITION: Remains in OR for completion of procedures by Dr. Wilson. STATEMENT MEDICAL NECESSITY: The patient is a 38-year-old female with a long history of pelvic organ prolapse involving cystocele, rectocele and uterine prolapse who desired definitive surgical management reconstruction. Risks, benefits, alternatives and indications were discussed with the patient and family, they agreed to plan. DESCRIPTION OF PROCEDURE: After informed consent was obtained, the patient was taken to the operating room. Adequate general endotracheal anesthesia was PATIENT NAME: QAMAR SANTANA established. She was positioned in the Lazaro stirrups, ensuring proper cushioning and support to avoid injury. She was prepped and draped in the usual sterile fashion. Exam under anesthesia was performed with findings noted above. Weighted speculum was placed in the vagina. Anterior lip of the cervix was grasped using a single tooth tenaculum. A stay suture was placed in the posterior cervix. Cervix was easily dilated using Hanks dilators and sounded to a depth of 10 cm. Chelle manipulator was introduced and secured, stay sutures were pulled loose; however, manipulator was applied and the tip balloon was insufflated to secure the manipulator. Cisneros catheter was placed and drained to the bag. Vaginal occluder was insufflated using approximately 50 mL of sterile saline. Gloves were changed. Attention was directed to the abdomen. Marcaine was instilled, skin incision was made and dissection was carried down to the fascia. Fascia was scored in the suprapubic and the infrapubic area. Gloves were changed. Attention was directed to the abdomen. Infraumbilical site was identified. Marcaine was instilled, skin incision was made. Dissection was carried down to the fascia. Fascia was sharply incised. This port was placed under visualization with intraperitoneal entry confirmed. Abdomen was entered and appeared normal. Upper abdomen was surveyed and appeared normal. The patient was placed in Trendelenburg position. Uterus was elevated. Uterus, ovaries, cul-de-sac and bladder were all inspected, appeared normal with the exception of a small peritoneal window in the posterior cul-de-sac. There were no further signs of endometriosis or other lesions noted. Clear area in the left lower quadrant was identified. Marcaine was instilled. Skin incision was made and a 5 mm port was placed under visualization. This was repeated suprapubically in the right lower quadrant. The round ligament and uteroovarian ligament were coagulated using bipolar cautery and then transected using Harmonic scalpel. This dissection was carried down to the level of the Chelle ring. Bladder flap was created, dissecting the bladder off the lower uterine segment and cervix. This was repeated on the contralateral side. Uterine vessels were isolated, triply coagulated and transected using Harmonic scalpel. Colpotomy was initiated anteriorly and carried circumferentially until the uterus and cervix were from the vaginal cuff. Uterus was delivered vaginally. Vaginal occluder balloon was placed and a laparotomy sponge packed into a sterile glove was placed vaginally to maintain pneumoperitoneum. The vaginal cuff was closed with an 0 PDS from either side and tied in the midline. Sutures were cut. The vaginal occluder balloon was removed. The patient remained in the OR for completion of Dr. Wilson's portion of the case. Dictated By: Héctor Page MD Date Dictated: 01/05/2024 09:01:08 Date Transcribed: 01/05/2024 09:21:24 GINA/REINALDO/ARLENE Receipt ID: [id number] Authenticated by Héctor Page MD On 01/11/2024 07:44:05 AM at 0744 PATIENT NAME: QAMAR SANTANA [facility] 2024-01-05 07:19:[address] [facility] ([facility]) History Physical - Adult REPORT#:[id number] REPORT STATUS: Signed REPORT INITIALIZATION DATE:01/05/24 TIME: 718 PATIENT: QAMAR SANTANA UNIT #: [id number] ROOM/BED: : 86 AGE: 38 SEX: F ATTEND: Héctor Page MD ADM AUTHOR: Héctor Page MD REPT SERVICE DT/TIME: 01/05/24718 * ALL edits or amendments must be made on the electronic/computer document * History of Present Illness HPI Chief complaint: pelvic pain, prolapse HPI: 38 yo with long hx of pelvic pain, uterine prolapse, assoc with difficulty with BM and low back pain, and urinary symptoms. Has tried physical therapy without improvement in symptoms. Reports FAN with coungh/sneeze as well as feeling of incomplete voiding. c/o constipation and pain with passing stool. periods regular and monthly without abnormal or intermenstrual bleeding. History Additional medical history: anxiety, eczema Additional surgical history: hysteroscopy, laparoscopy, salpingectomy, cholecystectomy, removal of kidney stones Additional family history: GM pancreatic cancer, no FHx breast or ovarian cancer reported Medication/Allergy-Vaccine Hx Allergies: Coded Allergies: No Known Allergies (12/07/23) Physical Exam VS/I O PATIENT WEIGHT: Weight (lb): 119 Weight (oz): 4.32 Weight (kg): 54.100 General appearance: alert, awake, oriented Cardiovascular: regular rate rhythm Respiratory: clear to auscultation Abdomen/GI: soft, non-tender Genitourinary: 6-8 wk uterus, RV, with significant prolapse. cystocele and rectocele noted. no adnexal masses. Neuro/SMASHER HAND: alert, oriented X 3 Results Findings/Data: Laboratory Tests: 01/05 520 Urines Urine HCG, Qual NEGATIVE EMB negative. Pap negative. Diagnosis, Assessment Plan Orders: Procedure Date/time Status UR HCG QUAL 01/05 512 Complete Free Text DxA P Notes Free Text DxA P Notes: uterine prolapse with pelvic pain, bladder/bowel symptoms. plan today for TLH (with removal of tubal remnants if identified), ovarian conservation, followed by pelvic floor reconstruction and other procedures by Dr. Wilson. R/B/A/I d/w pt, all questions answered, consents reviewed and signed. at 0727 [facility] #:[id number] END OF REPORT [facility] Scheduled Orders Name Type Priority Associated Diagnoses Orde r Schedule US retroperitoneum limited Imaging Routine Calculus of kidney Expected: 05/13/2024, Expires: 12/17/2024 Health Maintenance Due Date Last Done Comments Varicella Vaccines (1 of 2 - 13+ 2-dose series) 10/17/1999 DTaP/Tdap/Td Vaccines (1 - Tdap) 2005 Hepatitis B Vaccines (1 of 3 - 19+ 3-dose series) 2005 Pap Smear 10/17/2007 Cervical Cancer Screening 2016 HPV/Cotest 2016 Influenza Vaccine (#1) 2023 HIB Vaccines Aged Out No longer eligi ble based on patient's age to complete this topic HPV Vaccines Aged Out No longer eligi ble based on patient's age to complete this topic Hepatitis A Vaccines Aged Out No long er eligible based on patient's age to complete this topic IPV Vaccines Aged Out No longer eligi ble based on patient's age to complete this topic Meningococcal Vaccine Aged Out No david sharyn eligible based on patient's age to complete this topic Pneumococcal Vaccine: Pediat rics (0 to 5 Years) and At-Risk Patients (6 to 64 Years) Aged Out No longer eligible b ased on patient's age to complete this topic Rotavirus Vaccines Aged Out No longer eligible based on patient's age to complete this topic [facility] HospitalPyoqihb2478-71-30 10:20:32 Diagnosis [address] [facility] HospitalKzpmbgz9699-51-26 10:20:32 [facility] HospitalOpeeemy8364-23-03 10:20:31Upcoming Encounters Scheduled Orders Name Type Priority Associated Diagnoses Orde r Schedule XR abdomen 1 view Imaging Routine Calculus of kidney Expected: 05/13/2024, Expires: 12/17/2024 Health Maintenance Due Date Last Done Comments Varicella Vaccines (1 of 2 - 13+ 2-dose series) 10/17/1999 DTaP/Tdap/Td Vaccines (1 - Tdap) 2005 Hepatitis B Vaccines (1 of 3 - 19+ 3-dose series) 2005 Pap Smear 10/17/2007 Cervical Cancer Screening 2016 HPV/Cotest 2016 Influenza Vaccine (#1) 2023 HIB Vaccines Aged Out No longer eligi ble based on patient's age to complete this topic HPV Vaccines Aged Out No longer eligi ble based on patient's age to complete this topic Hepatitis A Vaccines Aged Out No long er eligible based on patient's age to complete this topic IPV Vaccines Aged Out No longer eligi ble based on patient's age to complete this topic Meningococcal Vaccine Aged Out No david sharyn eligible based on patient's age to complete this topic Pneumococcal Vaccine: Pediat rics (0 to 5 Years) and At-Risk Patients (6 to 64 Years) Aged Out No longer eligible b ased on patient's age to complete this topic Rotavirus Vaccines Aged Out No longer eligible based on patient's age to complete this topic [facility] HospitalEoomtld0224-98-13 10:20:[address] [facility] HospitalMmjfacn1697-97-34 10:20:31 [place] [id number] 13:04:28* [facility] HospitalJvqgjfg6926-04-46 13:04:28* Stef Dela Cruz MD - 11/23/2023 11:20 AM CDT Subjective Qamar Santana is a 38 y.o. who presents today follow up Kidney stones Patient is a 37-year-old female who presents for evaluation of kidney stones. She reports having severe bilateral flank pain and abdominal pain. She also reports noticing blood on the tissue when she wipes/he denies any gross hematuria. She went to the emergency department where she had BMP which demonstrated kidney function of 0.78. She had a CT scan that demonstrated a 9 mm left mid ureter kidney stone with hydronephrosis and she has a enhancing 2.3 cm cystic lesion in the right ovary with ill-defined cysts in the region of the cervix Extensive discussion was had with the patient regarding treatment options. We discussed observation/medical spots of therapy, ESWL, ureteroscopy and laser lithotripsy She does not want to trial to pass this and we will get a KUB to see if stone is visible to better assess treatment options Of note: She has previously had a cystoscopy for lower urinary tract symptoms and states that she does not think she will be able to tolerate a office cystoscopy for stent removal She was counseled that both procedures would require a stent for period of time She was counseled on the treatment failure rate of both procedures as well as the risk benefits alternatives. 07/02/23 KUB and pelvic ultrasound. The KUB was reported as negative however when I reviewed the CT scan there is a radiopaque calculus in the lower position similar shape. It has not moved significantly. We discussed treatment options including ESWL versus ureteroscopy and laser lithotripsy however given the stones medial dislocation of close proximity to the spinal column think she may have a better treatment effect with ureteroscopy and laser lithotripsy The risks, benefits, and some of the possible complications of surgical treatments including cystoscopy, ureteroscopy, renoscopy, laser lithotripsy, stent insertion and others were discussed with the patient. Patient understands that if the scope is not able to be advanced a stent will be placed and a staged procedure will be done. We discussed stents and how they may be uncomfortable. Patient understands that not all stones may be treated as limited by stone location and visibility. All questions were answered. The patient gave fully informed consent to proceed with a ureteroscopy with or without laser lithotripsy with stone extraction for the treatment of their kidney stones. The patient was given instructions to call for abdominal pain, pelvic pain, perirectal pain, nausea, vomiting, diarrhea, fever over 100 degrees F, chills, hematuria, dysuria, frequency, urgency, or urge incontinence. She would like to have some stent removed under sedation. Recommend she follow-up with [facility] for vaginal bleeding. Cyst on the ovary. 09/10/23 s/p URS/LL 08/06/23 here for stent removal No changes since she was seen for stone treatment 10/19/2023atient presents for follow-up after stent removal She reports last night developing an episode of left-sided flank pain with associated lower back discomfort and spasm near the rectal area. She is expecting to start her menstrual cycle this week. She denies any dysuria hematuria frequency urgency. She denies any fevers or chills. She denies any nausea or emesis Will obtain renal ultrasound and x-ray Ucx Follow up for results 11/23/2023atient presents today for follow-up She had renal ultrasound and a KUB which demonstrates a resolution of left-sided stones. No hydronephrosis. On the right side she does have a punctate stone She reports resolution in spasms that she experienced at the prior visit She does have some right upper back pain. I do not believe that this is stone related Results were reviewed with her and a copy of the report is provided follow-up in 6 months with a renal ultrasound KUB to monitor her right-sided kidney stone [facility] Female Bladder Questionnaire11/21/2023 7:46 PM CDT - Filed by Patient When do you leak urine? When coughing, sneezing, laughing, or exercising On average, how much do you leak? A medium amount (tablespoons) Has your leakage worsened over the past year? No Do you ever leak urine without awareness it's happening? Yes Do you wear a pad or protective undergarment due to leaking? Yes How many times a day do you change your pad or undergarment? 3 Select all that apply: My urge to urinate is so strong, I stop what I'm doing and brown to the bathroom; After urinating, I don't feel like I've completely emptied my bladder How many times a day do you urinate, on average? 10 How many times do you urinate after going to bed, on average? 2 Select all that apply: No past medical history on file.Patient Active Problem List Diagnosis Kidney stone Ovarian cyst Acute depression Past Surgical History:Procedure Laterality Date CYSTOSCOPY INSERTION / REMOVAL STENT / STONE Left 08/06/2023 URETERAL STENT EXCHANGE, LEFT CYSTOSCOPY INSERTION / REMOVAL STENT / STONE Left 08/06/2023 URETERAL STENT EXCHANGE, LEFT No family history on file.No Known Allergies ObjectiveHt 1.499 m (4' 11") | Wt 54 kg (119 lb) | BMI 24.04 kg/m? General Appearance: Alert, cooperative, no distress, appropriate for age HEENT: Normocephalic, EOM's intact, conjunctiva and corneas clear, moist mucous membranes Lungs: Respirations unlabored Back: no CVA tenderness Abdomen: Soft, non-tender, bowel sounds active all four quadrants, no mass, or organomegaly Musculoskeletal: Tone and strength strong and symmetrical, all extremities Skin/Hair/Nails: Skin warm, dry, and intact, no rashes or abnormal dyspigmentation Neurologic: Alert and oriented x3 Assessment/PlanDiagnoses and all orders for this visit: Kidney stone - XR abdomen 1 view; Future - US retroperitoneum limited; Future Other orders - Follow Up In Urology; Future [facility] [id number] 13:04:28Upcoming Encounters Health Maintenance Due Date Last Done Comments Varicella Vaccines (1 of 2 - 13+ 2-dose series) 10/17/1999 DTaP/Tdap/Td Vaccines (1 - Tdap) 2005 Hepatitis B Vaccines (1 of 3 - 19+ 3-dose series) 2005 Pap Smear 10/17/2007 Cervical Cancer Screening 2016 HPV/Cotest 2016 Influenza Vaccine (#1) 2023 HIB Vaccines Aged Out No longer eligi ble based on patient's age to complete this topic HPV Vaccines Aged Out No longer eligi ble based on patient's age to complete this topic Hepatitis A Vaccines Aged Out No long er eligible based on patient's age to complete this topic IPV Vaccines Aged Out No longer eligi ble based on patient's age to complete this topic Meningococcal Vaccine Aged Out No david sharyn eligible based on patient's age to complete this topic Pneumococcal Vaccine: Pediat rics (0 to 5 Years) and At-Risk Patients (6 to 64 Years) Aged Out No longer eligible b ased on patient's age to complete this topic Rotavirus Vaccines Aged Out No longer eligible based on patient's age to complete this topic [facility] HospitalGowpzdd6457-71-15 13:04:28 Diagnosis Kidney stone - Primary Calculus of kidney [facility] HospitalUfwzdiy4420-73-39 13:04:28 [facility] HospitalNcyhihe5900-09-72 09:48:48* [place] [id number] 09:48:48Upcoming Encounters Health Maintenance Due Date Last Done Comments Varicella Vaccines (1 of 2 - 13+ 2-dose series) 10/17/1999 DTaP/Tdap/Td Vaccines (1 - Tdap) 2005 Hepatitis B Vaccines (1 of 3 - 19+ 3-dose series) 2005 Pap Smear 10/17/2007 Cervical Cancer Screening 2016 HPV/Cotest 2016 Influenza Vaccine (#1) 2023 HIB Vaccines Aged Out No longer eligi ble based on patient's age to complete this topic HPV Vaccines Aged Out No longer eligi ble based on patient's age to complete this topic Hepatitis A Vaccines Aged Out No long er eligible based on patient's age to complete this topic IPV Vaccines Aged Out No longer eligi ble based on patient's age to complete this topic Meningococcal Vaccine Aged Out No david sharyn eligible based on patient's age to complete this topic Pneumococcal Vaccine: Pediat rics (0 to 5 Years) and At-Risk Patients (6 to 64 Years) Aged Out No longer eligible b ased on patient's age to complete this topic Rotavirus Vaccines Aged Out No longer eligible based on patient's age to complete this topic [facility] HospitalMuamked8955-40-00 09:48:48 [facility] HospitalPdlldpq6713-19-02 09:31:36* [facility] HospitalLivocum3873-03-38 09:31:36* Stef Dela Cruz MD - 10/19/2023 9:10 AM CDT Subjective Qamar Santana is a 38 y.o. who presents today follow up Kidney stones Patient is a 37-year-old female who presents for evaluation of kidney stones. She reports having severe bilateral flank pain and abdominal pain. She also reports noticing blood on the tissue when she wipes/he denies any gross hematuria. She went to the emergency department where she had BMP which demonstrated kidney function of 0.78. She had a CT scan that demonstrated a 9 mm left mid ureter kidney stone with hydronephrosis and she has a enhancing 2.3 cm cystic lesion in the right ovary with ill-defined cysts in the region of the cervix Extensive discussion was had with the patient regarding treatment options. We discussed observation/medical spots of therapy, ESWL, ureteroscopy and laser lithotripsy She does not want to trial to pass this and we will get a KUB to see if stone is visible to better assess treatment options Of note: She has previously had a cystoscopy for lower urinary tract symptoms and states that she does not think she will be able to tolerate a office cystoscopy for stent removal She was counseled that both procedures would require a stent for period of time She was counseled on the treatment failure rate of both procedures as well as the risk benefits alternatives. 07/02/23 KUB and pelvic ultrasound. The KUB was reported as negative however when I reviewed the CT scan there is a radiopaque calculus in the lower position similar shape. It has not moved significantly. We discussed treatment options including ESWL versus ureteroscopy and laser lithotripsy however given the stones medial dislocation of close proximity to the spinal column think she may have a better treatment effect with ureteroscopy and laser lithotripsy The risks, benefits, and some of the possible complications of surgical treatments including cystoscopy, ureteroscopy, renoscopy, laser lithotripsy, stent insertion and others were discussed with the patient. Patient understands that if the scope is not able to be advanced a stent will be placed and a staged procedure will be done. We discussed stents and how they may be uncomfortable. Patient understands that not all stones may be treated as limited by stone location and visibility. All questions were answered. The patient gave fully informed consent to proceed with a ureteroscopy with or without laser lithotripsy with stone extraction for the treatment of their kidney stones. The patient was given instructions to call for abdominal pain, pelvic pain, perirectal pain, nausea, vomiting, diarrhea, fever over 100 degrees F, chills, hematuria, dysuria, frequency, urgency, or urge incontinence. She would like to have some stent removed under sedation. Recommend she follow-up with [facility] for vaginal bleeding. Cyst on the ovary. 09/10/23 s/p URS/LL 08/06/23 here for stent removal No changes since she was seen for stone treatment 4Patient presents for follow-up after stent removal She reports last night developing an episode of left-sided flank pain with associated lower back discomfort and spasm near the rectal area. She is expecting to start her menstrual cycle this week. She denies any dysuria hematuria frequency urgency. She denies any fevers or chills. She denies any nausea or emesis Will obtain renal ultrasound and x-ray Ucx Follow up for results The patient is an established patient. This visit was conducted as a video encounter.The patient has given verbal consent for a virtual visit encounter. All necessary consents have been obtained. For new patients, consent to treat and medication history consents have been obtained from the patient. Diagnosis and plan of care are outlined here. The patient was advised to contact the clinic should they have any change in their clinical status prior to their next appointment. Total time spent with the patient: 4m 36s [facility] Female Bladder Questionnaire10/19/2023 9:07 AM CDT - Filed by Patient When do you leak urine? When coughing, sneezing, laughing, or exercising On average, how much do you leak? A medium amount (tablespoons) Has your leakage worsened over the past year? Yes Do you ever leak urine without awareness it's happening? Yes Do you wear a pad or protective undergarment due to leaking? Yes How many times a day do you change your pad or undergarment? 4 Select all that apply: My urge to urinate is so strong, I stop what I'm doing and brown to the bathroom; After urinating, I don't feel like I've completely emptied my bladder How many times a day do you urinate, on average? 10 How many times do you urinate after going to bed, on average? 2 Select all that apply: No past medical history on file.Patient Active Problem List Diagnosis Kidney stone Ovarian cyst Acute depression Past Surgical History:Procedure Laterality Date CYSTOSCOPY INSERTION / REMOVAL STENT / STONE Left 08/06/2023 URETERAL STENT EXCHANGE, LEFT CYSTOSCOPY INSERTION / REMOVAL STENT / STONE Left 08/06/2023 URETERAL STENT EXCHANGE, LEFT No family history on file.No Known Allergies ObjectiveThere were no vitals taken for this visit. General Appearance: Alert, cooperative, no distress, appropriate for age HEENT: Normocephalic, EOM's intact, conjunctiva and corneas clear, moist mucous membranes Lungs: Respirations unlabored Back: no CVA tenderness Abdomen: Soft, non-tender, bowel sounds active all four quadrants, no mass, or organomegaly Musculoskeletal: Tone and strength strong and symmetrical, all extremities Skin/Hair/Nails: Skin warm, dry, and intact, no rashes or abnormal dyspigmentation Neurologic: Alert and oriented x3 Assessment/PlanDiagnoses and all orders for this visit: Kidney stone - XR abdomen 1 view; Future - US retroperitoneum limited; Future Recurrent UTI - UA with culture if indicated; Future [place] [id number] 09:31:36Scheduled Orders Health Maintenance Due Date Last Done Comments Varicella Vaccines (1 of 2 - 13+ 2-dose series) 10/17/1999 DTaP/Tdap/Td Vaccines (1 - Tdap) 2005 Hepatitis B Vaccines (1 of 3 - 19+ 3-dose series) 2005 Pap Smear 10/17/2007 Cervical Cancer Screening 2016 HPV/Cotest 2016 Influenza Vaccine (#1) 2023 HIB Vaccines Aged Out No longer eligi ble based on patient's age to complete this topic HPV Vaccines Aged Out No longer eligi ble based on patient's age to complete this topic Hepatitis A Vaccines Aged Out No long er eligible based on patient's age to complete this topic IPV Vaccines Aged Out No longer eligi ble based on patient's age to complete this topic Meningococcal Vaccine Aged Out No david sharyn eligible based on patient's age to complete this topic Pneumococcal Vaccine: Pediat rics (0 to 5 Years) and At-Risk Patients (6 to 64 Years) Aged Out No longer eligible b ased on patient's age to complete this topic Rotavirus Vaccines Aged Out No longer eligible based on patient's age to complete this topic [facility] HospitalFxoqnwc9623-75-35 09:31:36 Diagnosis Kidney stone - Primary Calculus of kidney Recurrent UTI Urinary tract infection, site not specified [facility] HospitalMhstwtb1688-68-94 09:31:36 [facility] [id number] 23:52:02* Other Medical (Routine) - Closed Specialty Diagnoses / Procedures Referred By Contac t Referred To Contact Urology Diagnoses MHSE/cysto, stent rem - R / [id number] Procedures EXTERNAL PROCEDURE [facility] [id number] [facility] [address] [place] [address] [place] [id number] [facility] [address] [place] [address] Referral ID Status Reason Start Date Expiration Date Visits Re quested Visits Authorized [id number] Closed 09/10/2023 03/08/[address] [facility] HospitalPmvbopg4756-49-11 23:52:02Upcoming Encounters Health Maintenance Due Date Last Done Comments Varicella Vaccines (1 of 2 - 13+ 2-dose series) 10/17/1999 DTaP/Tdap/Td Vaccines (1 - Tdap) 2005 Hepatitis B Vaccines (1 of 3 - 19+ 3-dose series) 2005 Pap Smear 10/17/2007 Cervical Cancer Screening 2016 HPV/Cotest 2016 Influenza Vaccine (#1) 2023 HIB Vaccines Aged Out No longer eligi ble based on patient's age to complete this topic HPV Vaccines Aged Out No longer eligi ble based on patient's age to complete this topic Hepatitis A Vaccines Aged Out No long er eligible based on patient's age to complete this topic IPV Vaccines Aged Out No longer eligi ble based on patient's age to complete this topic Meningococcal Vaccine Aged Out No david sharyn eligible based on patient's age to complete this topic Pneumococcal Vaccine: Pediat rics (0 to 5 Years) and At-Risk Patients (6 to 64 Years) Aged Out No longer eligible b ased on patient's age to complete this topic Rotavirus Vaccines Aged Out No longer eligible based on patient's age to complete this topic Ashish MelchorBeomfud0855-13-66 23:52:02 Ashish Melchor
[2024-06-25] MEDS ORDERED: IBUPROFEN 400 MG TAB ONE (23:39)
[2024-06-25] MEDS ORDERED: IBUPROFEN 200 MG TAB PO ONE (23:39)
[2024-06-26 00:16] LABS: Influenza A Ag Negative; Influenza B Ag Negative; SARS-CoV-2 Antigen Rapid Res Negative (Negative)
[2024-06-26] MEDS ORDERED: AZITHROMYCIN 250 MG TAB ONE (00:42)
--- NOTE | 2024-06-26 00:55 | ER ---
Nurse's Notes [facility] Name: Soraida Gastelum Age: 38 yrs Sex: Female : 1985 Arrival Date: 06/25/2024 Time: 23:13 Bed 24 Private MD: Diagnosis: Influenza due to other identified influenza virus with other respiratory manifestations;Acute upper respiratory infection, unspecified;Fever, unspecified;Cough;Vomiting;Hypokalemia Presentation: 06/25 23:46 Chief complaint: Patient states: tested positive for flu Thursday. i started lg3 having symptoms the same day and was started on tamiflu. nausea, headache, body aches worsening. Coronavirus screen: Client denies travel out of the [place] in the last 14 days. Ebola Screen: No symptoms or risks identified at this time. Initial Sepsis Screen: Does the patient meet any 2 criteria? No. Patient's initial sepsis screen is negative. Does the patient have a suspected source of infection? No. Patient's initial sepsis screen is negative. Risk Assessment: Do you want to hurt yourself or someone else? Patient reports no desire to harm self or others. Onset of symptoms was June 22, 2024. 23:46 Method Of Arrival: Ambulatory lg3 23:46 Acuity: KEEGAN 3 lg3 Triage Assessment: 23:50 General: Appears in no apparent distress. uncomfortable, Behavior is calm, cooperative. lg3 Pain: Complains of pain in head. EENT: No deficits noted. No signs and/or symptoms were reported regarding the EENT system. Neuro: No deficits noted. Cervantes Agitation-Sedation Scale (RASS): 0 - Alert and Calm Level of Consciousness is awake, alert, obeys commands, Oriented to person, place, time, situation, Reports headache weakness. Cardiovascular: No deficits noted. Denies chest pain, shortness of breath, Capillary refill < 3 seconds Clubbing of nail beds is absent JVD is absent Patient's skin is warm and dry. Respiratory: No deficits noted. Airway is patent Respiratory effort is even, unlabored, Respiratory pattern is regular, symmetrical, Breath sounds are clear bilaterally. GI: Abdomen is flat, non-distended, Reports diarrhea, nausea. : No signs and/or symptoms were reported regarding the genitourinary system. Derm: No deficits noted. No signs and/or symptoms reported regarding the dermatologic system. Skin is intact, is healthy with good turgor, Skin is dry, Skin is normal, Skin temperature is warm. Musculoskeletal: No deficits noted. No signs and/or symptoms reported regarding the musculoskeletal system. Circulation, motion, and sensation intact. Range of motion: intact in all extremities. 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 - Infectious Disease History:: Denies. - Social history:: Smoking status: Patient denies any tobacco usage or history of. Patient/guardian denies using alcohol, street drugs. - Family history:: not pertinent. Screenin/30 01:07 [facility] ED Fall Risk Assessment (Adult) History of falling in the last 3 months, cp4 including since admission No falls in past 3 months (0 pts) Confusion or Disorientation No (0 pts) Intoxicated or Sedated No (0 pts) Impaired Gait No (0 pts) Mobility Assist Device Used No (0 pt) Altered Elimination No (0 pt) Score/Fall Risk Level 0 - 2 = Low Risk Oriented to surroundings, Maintained a safe environment, Assessed \T\ reinforced patient's understanding of fall precautions, Hourly rounding (assess needs \T\ fall precautionary measures) done. Abuse screen: Denies threats or abuse. Denies injuries from another. Nutritional screening: No deficits noted. Tuberculosis screening: No symptoms or risk factors identified. Assessment: 01:07 General: Appears in no apparent distress. comfortable, Behavior is calm, cooperative, cp4 appropriate for age. Pain: Complains of pain in head. Neuro: Level of Consciousness is awake, alert, obeys commands, Oriented to person, place, time, situation. Cardiovascular: Patient's skin is warm and dry. Respiratory: Airway is patent Respiratory effort is even, unlabored. GI: No signs and/or symptoms were reported involving the gastrointestinal system. : No signs and/or symptoms were reported regarding the genitourinary system. EENT: No signs and/or symptoms were reported regarding the EENT system. Derm: No signs and/or symptoms reported regarding the dermatologic system. Musculoskeletal: No signs and/or symptoms reported regarding the musculoskeletal system. Vital Signs: 06/25 23:46 BP 116 / 79; Pulse 89; Resp 16 S; Temp 97.3(TE); Pulse Ox 100% on R/A; Weight 54.43 kg lg3 (R); Height 4 ft. 11 in. (R); 06/26 01:25 BP 124 / 85; Pulse 90; Resp 18; Pulse Ox 100% ; cp4 02:50 BP 127 / 84; Pulse 94; Resp 16; Pulse Ox 100% ; cp4 04:14 BP 121 / 79; Pulse 97; Resp 16; Pulse Ox 99% ; cp4 06/25 23:46 Body Mass Index 24.24 (54.43 kg, 149.86 cm) lg3 ED Course: 06/25 23:15 Patient arrived in ED. mr 23:25 Regis Chung MD is Attending Physician. jocelynn 23:46 COVID-19 Ag + Flu A+B Ag Sent. lg3 23:50 Triage completed. lg3 23:50 Arm band placed on right wrist. lg3 06/26 01:06 Helen Mock is Primary Nurse. cp4 01:07 Bed in low position. Call light in reach. Side rails up X 1. cp4 01:19 No provider procedures requiring assistance completed. Inserted saline lock: 22 gauge cp4 in right antecubital area, using aseptic technique. Blood collected. Flushed with 10 mL NS. 02:29 CT Chest For PE Angio In Process Unspecified. EDMS 04:46 intact, bleeding controlled, No redness/swelling at site. Pressure dressing applied. cp4 04:46 Provided Education on: upper respiratory infection. cp4 Administered Medications: 06/25 23:46 Drug: Ibuprofen PO 600 mg PO once Route: PO; lg3 06/26 02:09 Follow up: Response: No adverse reaction cp4 00:45 Drug: AZITHromycin PO 500 mg PO once Route: PO; cp4 02:09 Follow up: Response: No adverse reaction cp4 01:19 Drug: NS 0.9% IV 1000 ml IV at 1 bolus Per protocol; to be given as a bolus over 60 cp4 minutes Route: IV; Rate: 1 bolus; Site: right antecubital; 04:15 Follow up: IV Status: Completed infusion cp4 01:19 Drug: Ondansetron IVP 4 mg IVP once; over 2 minutes Route: IVP; Site: right antecubital;cp4 02:09 Follow up: Response: No adverse reaction cp4 02:48 Drug: Potassium PO Effervescent Tablet 25 mEq PO once; dissolve in 4 ounces of water or cp4 juice Route: PO; 04:15 Follow up: Response: No adverse reaction cp4 Medication: 01:07 VIS not applicable for this client. cp4 Outcome: 00:55 Discharge ordered by . jocelynn 03:42 Discharge ordered by . [facility] 04:46 Discharged to home ambulatory, cp4 04:46 Condition: stable 04:46 Discharge instructions given to patient, family, Instructed on discharge instructions, follow up and referral plans. medication usage, Demonstrated understanding of instructions, follow-up care, medications, Prescriptions given X 2, 04:47 Patient left the ED. cp4 Signatures: Dispatcher [employer] EDRegis Dunn MD MD cha Rivera, Mary, Reg Reg Sultana Law RN RN lg3 Helen Mock cp4
--- NOTE | 2024-06-26 00:55 | EDPHYS ---
Physician Documentation [facility] Name: Soraida Gastelum Age: 38 yrs Sex: Female : 1985 Arrival Date: 06/25/2024 Time: 23:13 Bed 24 Private MD: ED Physician Regis Chung HPI: 06/26 00:15 This 38 yrs old Female presents to ER via Ambulatory with complaints of Flu jocelynn Symptoms. 00:15 The patient or guardian reports cough. Onset: The symptoms/episode began/occurred 3 jocelynn day(s) ago. Modifying factors: The symptoms are alleviated by nothing. the symptoms are aggravated by nothing. Associated signs and symptoms: The patient has no apparent associated signs or symptoms. The patient reports fever, that was measured at 100 degrees Fahrenheit. Modifying factors: there are no obvious modifying factors. Severity of symptoms: At their worst the symptoms were mild in the emergency department the symptoms are unchanged. Associated signs and symptoms: Pertinent positives: chills, cough, headache. 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 - Infectious Disease History:: Denies. - Social history:: Smoking status: Patient denies any tobacco usage or history of. Patient/guardian denies using alcohol, street drugs. - Family history:: not pertinent. ROS: 06/26 00:16 Constitutional: Negative for fever, chills, and weight loss, Eyes: Negative for injury, jocelynn pain, redness, and discharge, ENT: Negative for injury, pain, and discharge, Neck: Negative for injury, pain, and swelling, Cardiovascular: Negative for chest pain, palpitations, and edema, Abdomen/GI: Negative for abdominal pain, nausea, vomiting, diarrhea, and constipation, Back: Negative for injury and pain, : Negative for injury, bleeding, discharge, and swelling, MS/Extremity: Negative for injury and deformity, Skin: Negative for injury, rash, and discoloration, Neuro: Negative for headache, weakness, numbness, tingling, and seizure, Psych: Negative for depression, anxiety, suicide ideation, homicidal ideation, and hallucinations, Allergy/Immunology: Negative for hives, rash, and allergies, Endocrine: Negative for neck swelling, polydipsia, polyuria, polyphagia, and marked weight changes, Hematologic/Lymphatic: Negative for swollen nodes, abnormal bleeding, and unusual bruising, Respiratory: Positive for cough, "sounds productive", Exam: 00:16 Constitutional: This is a well developed, well nourished patient who is awake, alert, jocelynn and in no acute distress. Head/Face: Normocephalic, atraumatic. Eyes: Pupils equal round and reactive to light, extra-ocular motions intact. Lids and lashes normal. Conjunctiva and sclera are non-icteric and not injected. Cornea within normal limits. Periorbital areas with no swelling, redness, or edema. ENT: Nares patent. No nasal discharge, no septal abnormalities noted. Tympanic membranes are normal and external auditory canals are clear. Oropharynx with no redness, swelling, or masses, exudates, or evidence of obstruction, uvula midline. Mucous membranes moist. Neck: Trachea midline, no thyromegaly or masses palpated, and no cervical lymphadenopathy. Supple, full range of motion without nuchal rigidity, or vertebral point tenderness. No Meningismus. Chest/axilla: Normal chest wall appearance and motion. Nontender with no deformity. No lesions are appreciated. Cardiovascular: Regular rate and rhythm with a normal S1 and S2. No gallops, murmurs, or rubs. Normal PMI, no JVD. No pulse deficits. Respiratory: Lungs have equal breath sounds bilaterally, clear to auscultation and percussion. No rales, rhonchi or wheezes noted. No increased work of breathing, no retractions or nasal flaring. Abdomen/GI: Soft, non-tender, with normal bowel sounds. No distension or tympany. No guarding or rebound. No evidence of tenderness throughout. Back: No spinal tenderness. No costovertebral tenderness. Full range of motion. Skin: Warm, dry with normal turgor. Normal color with no rashes, no lesions, and no evidence of cellulitis. MS/ Extremity: Pulses equal, no cyanosis. Neurovascular intact. Full, normal range of motion., bilateral aka Neuro: Awake and alert, GCS 15, oriented to person, place, time, and situation. Cranial nerves II-XII grossly intact. Motor strength 5/5 in all extremities. Sensory grossly intact. Cerebellar exam normal. Normal gait. Psych: Awake, alert, with orientation to person, place and time. Behavior, mood, and affect are within normal limits. 00:16 Musculoskeletal/extremity: DVT Exam: No signs of deep vein thrombosis. no pain, no swelling, no tenderness, negative Homans' sign noted on exam, no appreciated bluish discoloration, no erythema, no increased warmth, :54 ECG was reviewed by the Attending Physician. [facility] :54 Musculoskeletal/extremity: ROM: intact in all extremities, Circulation is intact in all jocelynn extremities. Sensation intact. Compartment Syndrome exam of affected extremity: is normal. Weight bearing: able to fully bear weight, without difficulty, : ECG was reviewed by the Attending Physician. [facility] : ECG was reviewed by the Attending Physician. Vital Signs: 06/25 23:46 BP 116 / 79; Pulse 89; Resp 16 S; Temp 97.3(TE); Pulse Ox 100% on R/A; Weight 54.43 kg lg3 (R); Height 4 ft. 11 in. (R); 06/26 01:25 BP 124 / 85; Pulse 90; Resp 18; Pulse Ox 100% ; cp4 02:50 BP 127 / 84; Pulse 94; Resp 16; Pulse Ox 100% ; cp4 04:14 BP 121 / 79; Pulse 97; Resp 16; Pulse Ox 99% ; cp4 06/25 23:46 Body Mass Index 24.24 (54.43 kg, 149.86 cm) lg3 MDM: 06/25 23:25 Medical Screening Exam initiated jocelynn 06/26 00:17 Differential diagnosis: obstructed airway, tracheal injury, bronchitis, flu, URI, viral jocelynn Infection, bacterial infection, URI, bronchitis, pneumonia UTI. Antibiotic administration: The patient is discharged and will get outpatient antibiotics, Zithromax. Data reviewed: vital signs, nurses notes, lab test result(s). I considered the following discharge prescriptions or medication management in the emergency department Medications were administered in the Emergency Department. See MAR. Test considered but Not performed: Labs: no cbc, no comp met. Care significantly affected by the following chronic conditions: anxiety , depression. 06/25 23:26 Order name: COVID-19 Ag + Flu A+B Ag; Complete Time: 00:38 [facility] 06/26 01:04 Order name: CBC with Diff; Complete Time: :53 [facility] 06/26 01:04 Order name: Comprehensive Metabolic Panel; Complete Time: 01:53 [facility] 06/26 01:14 Order name: D-Dimer; Complete Time: :53 [facility] 06/26 01:54 Order name: Troponin High Sensitivity; Complete Time: 02:23 [facility] 06/26 01:53 Order name: CT Chest For PE Angio [facility] 06/26 01:54 Order name: EKG; Complete Time: :54 [facility] 06/26 00:14 Order name: PO challenge; Complete Time: 00:45 [facility] 06/26 01:54 Order name: EKG - Nurse/Tech; Complete Time: 02:23 [facility] EC:29 Rate is 84 beats/min. Rhythm is regular. QRS [place] is Normal. [place] interval is normal. QRS jocelynn interval is normal. QT interval is normal. No Q waves. T waves are Normal. No ST changes noted. Clinical impression: NSR w/ Non-specific ST/T Changes and No evidence of ischemia. Interpreted by me. Reviewed by me. Administered Medications: 06/25 23:46 Drug: Ibuprofen PO 600 mg PO once Route: PO; lg3 06/26 02:09 Follow up: Response: No adverse reaction cp4 00:45 Drug: AZITHromycin PO 500 mg PO once Route: PO; cp4 02:09 Follow up: Response: No adverse reaction cp4 01:19 Drug: NS 0.9% IV 1000 ml IV at 1 bolus Per protocol; to be given as a bolus over 60 cp4 minutes Route: IV; Rate: 1 bolus; Site: right antecubital; 04:15 Follow up: IV Status: Completed infusion cp4 01:19 Drug: Ondansetron IVP 4 mg IVP once; over 2 minutes Route: IVP; Site: right antecubital;cp4 02:09 Follow up: Response: No adverse reaction cp4 02:48 Drug: Potassium PO Effervescent Tablet 25 mEq PO once; dissolve in 4 ounces of water or cp4 juice Route: PO; 04:15 Follow up: Response: No adverse reaction cp4 Disposition Summary: 06/26/24 03:42 Discharge Ordered Notes: Location: Home(06/26/24 03:42) jocelynn Problem: new(06/26/24 03:42) jocelynn Symptoms: have improved(06/26/24 03:42) jocelynn Condition: Stable(06/26/24 03:42) jocelynn Diagnosis - Influenza due to other identified influenza virus with other respiratory jocelynn manifestations(06/26/24 03:42) - Acute upper respiratory infection, unspecified(06/26/24 03:42) jocelynn - Fever, unspecified(06/26/24 03:42) jocelynn - Cough(06/26/24 03:42) jocelynn - Vomiting jocelynn - Hypokalemia jocelynn Followup: jocelynn - With: Private Physician - When: 2 - 3 days - Reason: Recheck today's complaints, Continuance of care, Re-evaluation by your physician Discharge Instructions: - Discharge Summary Sheet jocelynn - Potassium Content of Foods jocelynn - Nausea and Vomiting, Adult jocelynn - Upper Respiratory Infection, Adult, [id number] jocelynn - Weakness, [id number] jocelynn - Hypokalemia jocelynn Forms: - Medication Reconciliation Form jocelynn - Antibiotic Education jocelynn - Prescription Opioid Use jocelynn - Patient Portal Instructions jocelynn - Leadership Thank You Letter [facility] Prescriptions: - ondansetron 4 mg Oral Tablet,disintegrating - take 1 tablet ORAL route every 6-8 hours for 5 days prn; 20 tablet; Refills: 0, jocelynn Product Selection Permitted - Zithromax Z-Jevon 250 mg Oral Tablet - take 1 tablet ORAL route as directed for 5 days Day 1 - take two (2) tablets [facility] one time. Day 2, 3, 4 , 5 take one (1) tablet once daily.; 6 tablet; Refills: 0, Product Selection Permitted Signatures: Dispatcher [employer] EDMS Regis Chung MD MD cha Able, Lacie, RN RN lg3 Helen Mock cp4 Corrections: (The following items were deleted from the chart) 01:05 01:05 CBC+H.LAB.BRZ ordered. EDMS EDMS 01:05 01:05 COMPREHENSIVE METABOLIC PANEL+C.LAB.BRZ ordered. EDMS EDMS 01:14 00:55 Home [facility] 01:14 00:55 new [facility] 01:14 00:55 have improved jocelynn jocelynn 01:14 00:55 Stable [facility] 01:14 00:55 Influenza due to other identified influenza virus with other respiratory [facility] manifestations [facility] : 00:55 Acute upper respiratory infection, unspecified [facility] 00:55 Fever, unspecified [facility] 00:55 Cough [facility] 01:15 D-DIMER+COAG.LAB.BRZ ordered. EDMS EDMS 02:29 01:54 Rate is 90 beats/min. Rhythm is regular. QRS [place] is Normal. [place] interval is jocelynn normal. QRS interval is normal. QT interval is normal. No Q waves. T waves are Normal. No ST changes noted. Clinical impression: NSR w/ Non-specific ST/T Changes and No evidence of ischemia. Interpreted by me. Reviewed by me. [facility]
[2024-06-26] MEDS ORDERED: NA CHLORIDE 0.9% 1,000 ML ONE (01:10)
[2024-06-26] MEDS ORDERED: ONDANSETRON 4 MG/2 ML VIAL ONE (01:10)
[2024-06-26 01:28] LABS: Absolute Eosinophils 0.1 K/uL (0-0.5); Absolute Lymphocytes (CBC) 1.4 K/uL (0.7-4.9); Absolute Monocytes 0.4 K/uL (0.1-1.3); Absolute Neutrophil 2.2 K/uL (1.8-8.0); Basophils % 0.5 % (0-1.3); Eosinophils % 1.4 % (0-4.4); Hemoglobin 12.5 g/dL (12.0-15.0); Lymphocytes % 33.8 % (15.3-44.8); MCH 30.3 pg (27.0-35.0); MCV 91.8 fL (80-100); MPV 9.2 fL (7.6-11.3); Monocytes % 10.8 % (3.3-12.3); Neutrophils % 53.5 % (41.7-73.7); Nucleated Red Blood Cells % 0.1 % (0-0); Platelets 216 thou/uL (152-406); RBC Red Blood Cell Count 4.14 M/uL (3.86-4.86); Red Cell Distribution Width 13.4 % (12.1-15.2)
[2024-06-26 01:42] LABS: Albumin 3.3 g/dL (3.4-5.0); Anion Gap 8.4 mEq/L (5.0-15.0); Bilirubin Total 0.2 mg/dL (0.2-1.0); Globulin 3.3 g/dL (2.3-3.5); Potassium 3.4 mEq/L (3.5-5.1); Protein, Total 6.6 g/dL (6.4-8.2)
[2024-06-26] MEDS ORDERED: POTASSIUM 25 MEQ EFFERV TAB ONE (02:46)
--- NOTE | 2024-06-26 04:00 | RAD REPORT ---
EXAM: Chest For Pe Angio CTA Chest With Contrast HISTORY: Dyspnea COMPARISON: Chest 1 View AP 11/29/2018 report without image TECHNIQUE: Chest CTA axial images acquired with IV contrast. Coronal and sagittal CTA MIPs and MPRs c reated. Exam performed according to departmental dose-optimization program which includes automated exposure control, adjustment of mA and/or kV according to patient size, and/or use of iterative recon struction technique. FINDINGS: Heart size normal. No pericardial effusion. Thoracic aorta unremarkable without evidence of dissection, aneurysm, or atherosclerotic plaque. No evidence of pulmonary embolism. Central tracheobronchial tree unremarkable. No consolidation, lung mass, or significant pulmonary edema. No pleural effusion or pneumothorax. Bones unremarkable. IMPRESSION: Normal CTA chest with contrast Electronically signed by: Gabe Pate MD 06/26/2024 03:53 AM CDT Due to temporary technical issues with the PACS/Shoppable reporting system, reports are being royal d by the in-house radiologist without review as a courtesy to ensure prompt reporting the interpreting radiologist is fully responsible for the content of the report. Transcribed Date/Time: 06/26/2024 3:59 AM
[2024-06-26 05:10] VITALS: TEMP 97.3
[2024-06-26 05:13] VITALS: BP 121/79; O2SAT 99
--- NOTE | 2024-06-27 11:20 | EKG ---
Test Date: 2024-06-26 Test Time: 01:20:43 [employer] Vice President: ERIC MEASUREMENT RESULTS: Intervals: Rate: 84 DC: 172 QRSD: 78 QT: 348 QTc: 411 [place]: P: 73 DC: 172 QRS: 52 T: 18 INTERPRETIVE STATEMENTS: Normal sinus rhythm Cannot rule out Anterior infarct, age undetermined Abnormal ECG Compared to ECG 06/26/2024 01:20:04 No significant changes Electronically Signed On 06-27-24 11:17:55 CDT by Song Landin
--- NOTE | 2024-06-27 11:20 | EKG ---
Test Date: 2024-06-26 Test Time: 01:20:04 Sales Rep: ERIC MEASUREMENT RESULTS: Intervals: Rate: 87 [place]: 168 QRSD: 78 QT: 358 QTc: 430 [place]: P: 68 [place]: 168 QRS: 48 T: 31 INTERPRETIVE STATEMENTS: Normal sinus rhythm Cannot rule out Anterior infarct, age undetermined Abnormal ECG No previous ECG available for comparison Electronically Signed On 06-27-24 11:17:56 CDT by Song Landin
== END 2024-06-26 04:47 | disposition home or self-care (01) ==
LOC: ER 23:13
DX: J10.1 Influenza due to other identified influenza virus with other respiratory manifestations (principal); E87.6 Hypokalemia; R11.10 Vomiting, unspecified; Z11.52 Encounter for screening for COVID-19
CPT/HCPCS: 96361; 93005 ×2; 85025; 36415; 85379; 84484; 80053; 71275; 96374; 99284; 87428; Q9967; J2405; J7030